=== PATIENT | male | born 1970 | race African-American/Black ===

== ENCOUNTER 2019-03-29 13:36 | Inpatient (IN) | payer OTHER ==
[~2019-03-29] VITALS: Ht 193 cm; Wt 85.7 kg
[2019-03-29] MEDS ORDERED: SODIUM CHLORIDE 0.9% 1000ML 1,000 ML IV STA (13:53)
[2019-03-29] MEDS ORDERED: ONDANSETRON HCL INJ 2MG/ML 2ML 2 MG/ML VIAL IV NR (14:00)
[2019-03-29] MEDS ORDERED: DONNATAL/LIDOCAINE/MAALOX 30 ML SUSP PO NR (14:00)
[2019-03-29] MEDS ORDERED: PANTOPRAZOLE 40 MG 10ML VIAL IV NR ×2 (14:00→17:30)
[2019-03-29 14:25] LABS: AMPHETAMINES SCREEN,URINE NEGATIVE (NEGATIVE); BENZODIAZEPINES SCREEN,URINE NEGATIVE (NEGATIVE); PHENCYCLIDINE SCREEN,URINE NEGATIVE (NEGATIVE)
[2019-03-29 15:42] LABS: BASOPHILS % 0.6 % (0.0-1.0); EOSINOPHILS # (AUTO) 0.1 (0.0-0.4); EOSINOPHILS % 0.7 % (0.0-6.0); HEMATOCRIT 41.7 % (38.2-49.6); LYMPHOCYTES # (AUTO) 2.1 (1.0-3.2); LYMPHOCYTES % 29.2 % (18.0-39.1); MEAN CORPUSCULAR HEMOGLOBIN 32.3 pg (28-32); MEAN CORPUSCULAR HGB CONC 33.6 g/dL (31-35); MEAN CORPUSCULAR VOLUME 96.1 fL (81-99); MONOCYTES # (AUTO) 0.5 (0.2-0.8); MONOCYTES % 7.3 % (4.4-11.3); NEUTROPHILS # (AUTO) 4.5 (2.1-6.9); NEUTROPHILS % 61.9 % (38.7-80.0); PLATELET COUNT 267 x10e3/uL (140-360); RED BLOOD COUNT 4.34 x10e6/uL (4.3-5.7); RED CELL DISTRIBUTION WIDTH 12.4 % (11.7-14.4)
[2019-03-29 15:48] LABS: INR 0.9; PROTHROMBIN TIME 12.6 seconds (11.9-14.5)
[2019-03-29 16:03] LABS: ALANINE AMINOTRANSFERASE 30 IU/L (0-55); ALBUMIN 4.5 g/dL (3.5-5.0); ALBUMIN/GLOBULIN RATIO 1.2 (0.8-2.0); ALKALINE PHOSPHATASE 97 IU/L (40-150); AMYLASE 68 U/L (25-125); BLOOD UREA NITROGEN 12 mg/dL (7-26); BUN/CREATININE RATIO 13 (6-25); CALCIUM 11.2 mg/dL (8.4-10.2); CARBON DIOXIDE 28 mmol/L (22-29); CHLORIDE 103 mmol/L (98-107); EST GLOMERULAR FILTRATION RATE > 60 ML/MIN (60-); GLUCOSE 109 mg/dL (74-118); LIPASE 20 U/L (8-78); MAGNESIUM 2.4 MG/DL (1.3-2.1); SODIUM 142 mmol/L (136-145)
--- NOTE | 2019-03-29 16:12 | NUR ---
PT GIVEN GI COCKTAIL, SHORTLY AFTER EMESIS NOTED, APPROX HALF OF MEDICATION, BRENDA IZQUIERDO NOTIFIED.
--- NOTE | 2019-03-29 17:00 | NUR ---
APPROX 300 CC EMESIS NOTED, SEROSANGINOUS IN NATURE, BRENDA ENP NOTIFIED.
[2019-03-29] MEDS ORDERED: ONDANSETRON HCL INJ 2MG/ML 2ML 2 MG/ML VIAL IV ONE (17:30)
--- NOTE | 2019-03-29 18:15 | Diagnostic Imaging Report ---
RADIOGRAPH(S) OF THE ABDOMEN AND PELVIS, 3 view(s) including an upright views of the abdomen and the chest HISTORY: Stomach pain, epigastric pain, peptic ulcers, rule out free air COMPARISON: None available. FINDINGS: Overlying monitoring leads. No evidence of free air. A single mildly dilated segment of small bowel in the left mid abdomen, 3.4 cm in diameter. Small air-fluid levels within the left hemiabdomen. Possibly of bowel gas in general, but there is visible bowel gas and stool in the proximal to mid colon. No definite urinary tract calcification. Phleboliths within the left hemipelvis. The bones are partially obscured by stool and overlying bowel gas. IMPRESSION: 1. Mildly dilated small bowel within the left hemiabdomen, considerations include ileus or partial small bowel obstruction. Surveillance follow-up abdominal radiographs would provide further evaluation. 2. No free air. Signed by: Dr. Adeel Farrell D.O., M.M.M. on 03/29/2019 6:11 PM
[2019-03-29] MEDS ORDERED: DIATRIZOATE MEGL/DIATRIZOA SOD 30 ML BTL PO ONE (18:32)
--- OUTSIDE RECORDS SUMMARY | 2019-03-29 18:36 | XMS REPORT ---
Author [facility] Address Unknown Phone Unavailable Care Team Providers Care Hydrogeology Professor Name Role Phone Caleb W[place] Unavailable Unavailable Problems This patient has no known problems. Allergies, Adverse Reactions, Alerts This patient has no known allergies or adverse reactions. Medications This patient has no known medications. 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 FINDINGS: Overlying monitoring leads. No evidence of free air. A single mildly dilated segment of small bowel in the left mid abdomen, 3.4 cm in diameter. Small air-fluid levels within the left hemiabdomen. Possibly of bowel gas in general, but there is visible bowel gas and stool in the proximal to mid colon. No definite urinary tract calcification. Phleboliths within the left hemipelvis. The bones are partially obscured by stool and overlying bowel gas. IMPRESSION: 1. Mildly dilated small bowel within the left hemiabdomen, considerations include ileus or partial small bowel obstruction. Surveillance follow-up abdominal radiographs would provide further evaluation. 2. No free air. Signed by: Dr. Donte Farrell D.O., M.M.M. on 03/29/2019 6:11 PM Dictated By: DONTE FARRELL DO 10 Transcribed By: CASSY on 03/29/191810 COPY TO: CHRISTOFER HAYES NP
[2019-03-29] MEDS ORDERED: LIDOCAINE VISC 2% SOLN 15 ML UDC PO ONE (19:00)
[2019-03-29] MEDS: SODIUM CHLORIDE 0.9% 1000ML 1,000 ML IV SCH (19:10)
[2019-03-29] MEDS ORDERED: ACETAMINOPHEN 1000 MG/100 ML 100 ML IV ONE (19:41)
--- NOTE | 2019-03-29 20:28 | Diagnostic Imaging Report ---
EXAM: CT of the abdomen and pelvis WITH contrast HISTORY: nasuea, vomiting, concern for SBO or ilieus COMPARISON: None. TECHNIQUE: The abdomen and pelvis were scanned utilizing a multidetector helical scanner. Coronal and sagittal reformats are provided. PROTOCOL: Routine IV CONTRAST: 100 cc of Isovue-370. ORAL CONTRAST: Dilute Gastrografin RADIATION DOSE: Total DLP: 232.53 mGy*cm Estimated effective dose: (DLP x 0.015 x size factor) Dose modulation, iterative reconstruction, and/or weight based adjustment of the mA/kV was utilized to reduce the radiation dose to as low as reasonably achievable. COMPLICATIONS: None FINDINGS: LOWER THORAX: Unremarkable. HEPATOBILIARY: No mass. No biliary dilation. The gallbladder is partially contracted, no calcified stone. SPLEEN: No splenomegaly. PANCREAS: No focal masses or ductal dilatation. ADRENALS: No discrete adrenal nodule. KIDNEYS/URETERS: No hydronephrosis, stones, or definite solid mass lesions. PELVIC ORGANS/BLADDER: The urinary bladder is decompressed, which limits evaluation. GI TRACT: Multiple loops of dilated fluid-filled proximal small bowel, measuring up to 4.2 cm (axial image 43), with short segment transition to nondistended decompressed small bowel. The distal small bowel and colon are relatively decompressed. The appendix is not definitively seen, but there is no specific evidence of acute appendicitis. PERITONEUM / RETROPERITONEUM: Small volume of free fluid within the pelvis. LYMPH NODES: No pathologically enlarged lymph node. VESSELS: Mild scattered atherosclerotic vascular calcifications. BONES: No aggressive osseous lesion or acute fracture. SOFT TISSUES: Unremarkable. IMPRESSION: Findings compatible with a high-grade small bowel obstruction. Signed by: Dr. Adeel Farrell D.O., M.M.M. on 03/29/2019 8:25 PM
--- NOTE | 2019-03-29 20:30 | NUR ---
Got report from Kevin. Patient arrived via wheelchair. at bedside. call light within reach. Patient in pain. called Dr. Cardenas for pain medication. Dr. Cardenas ordered Morphine 2 mg, IV q4 h.
[2019-03-29 20:39] VITALS: BP 145/92
[2019-03-29] MEDS ORDERED: MORPHINE SULFATE 2 MG/ML SYR 1ML IV PRN (21:00)
[2019-03-29] MEDS: MORPHINE SULFATE INJ 4 MG/ML INJ 1ML IV PRN (21:19)
[2019-03-29] MEDS: SODIUM CHLORIDE 0.9% 250ML IRRIG IR SCH (22:30)
[2019-03-29] MEDS ORDERED: IOPAMIDOL 370 MG/ML 200 ML INFUS..BTL INJ ONE (22:43)
[2019-03-29] MEDS ORDERED: SODIUM CHLORIDE 0.9% 50ML 50 ML ONE (22:43)
--- NOTE | 2019-03-29 22:54 | Diagnostic Imaging Report ---
Exam: Abdominal film Clinical History: NG tube placement Comparison: CT abdomen and pelvis 03/29/2019 DISCUSSION: Frontal view of the abdomen shows dilated loops of small bowel in the left lower quadrant with maximal measurement of 3.7 cm. Contrast is noted in the collecting systems. There are no abnormal calcifications.No acute bone abnormality. Lung bases are grossly clear. Enteric tube is noted below the left hemidiaphragm, with distal tip projecting in the stomach fundus IMPRESSION: 1. Enteric tube under the left hemidiaphragm with distal tip projecting in the stomach fundus. 2. Dilated small bowel loops consistent with previously visualized small bowel obstruction. The staff physician below has personally reviewed this exam on the date of dictation. Signed by: Dr. Landon Ch M.D. on 03/29/2019 10:51 PM
[2019-03-29 23:15] VITALS: BP 145/92
--- NOTE | 2019-03-29 23:35 | NUR ---
Called Dr. Min about consult for the patient. Dr. Min said he will come in the morning to see the patient.
[2019-03-30] VITALS (9 sets, daily range): BP systolic 107–160; BP diastolic 63–90
[2019-03-30] MEDS: SODIUM CHLORIDE 0.9% 250ML IRRIG IR SCH ×6 (02:30→22:30)
[2019-03-30] MEDS: MORPHINE SULFATE INJ 4 MG/ML INJ 1ML IV PRN ×3 (04:54→19:04)
[2019-03-30] MEDS: SODIUM CHLORIDE 0.9% 1000ML 1,000 ML IV SCH ×3 (04:55→18:28)
[2019-03-30 05:49] LABS: BASOPHILS % 0.6 % (0.0-1.0); EOSINOPHILS # (AUTO) 0.1 (0.0-0.4); EOSINOPHILS % 1.3 % (0.0-6.0); HEMOGLOBIN 12.3 g/dL (14.0-18.0); MEAN CORPUSCULAR HEMOGLOBIN 31.8 pg (28-32); MEAN CORPUSCULAR HGB CONC 32.4 g/dL (31-35); MEAN CORPUSCULAR VOLUME 98.2 fL (81-99); MONOCYTES # (AUTO) 0.6 (0.2-0.8); MONOCYTES % 8.9 % (4.4-11.3); NEUTROPHILS # (AUTO) 4.1 (2.1-6.9); NEUTROPHILS % 59.9 % (38.7-80.0); PLATELET COUNT 196 x10e3/uL (140-360); RED BLOOD COUNT 3.87 x10e6/uL (4.3-5.7); RED CELL DISTRIBUTION WIDTH 12.8 % (11.7-14.4)
[2019-03-30 06:15] LABS: ALANINE AMINOTRANSFERASE 22 IU/L (0-55); ALBUMIN 3.5 g/dL (3.5-5.0); ALBUMIN/GLOBULIN RATIO 1.2 (0.8-2.0); ALKALINE PHOSPHATASE 59 IU/L (40-150); ANION GAP 9.7 mmol/L (8-16); BLOOD UREA NITROGEN 11 mg/dL (7-26); BUN/CREATININE RATIO 13 (6-25); CALCIUM 9.7 mg/dL (8.4-10.2); CARBON DIOXIDE 24 mmol/L (22-29); CHLORIDE 109 mmol/L (98-107); CREATININE, SERUM 0.86 mg/dL (0.72-1.25); EST GLOMERULAR FILTRATION RATE > 60 ML/MIN (60-); GLUCOSE 100 mg/dL (74-118); MAGNESIUM 2.1 MG/DL (1.3-2.1); PHOSPHORUS 2.8 MG/DL (2.3-4.7); POTASSIUM 3.7 mmol/L (3.5-5.1); SODIUM 139 mmol/L (136-145)
--- NOTE | 2019-03-30 06:31 | Diagnostic Imaging Report ---
Exam: Abdominal film Clinical History: Small bowel obstruction Comparison: CT abdomen and pelvis 03/29/2019 DISCUSSION: Frontal view of the abdomen shows centrally located mild to moderately dilated loops of small bowel in the left mid and lower quadrant, with maximal measurement of 4.1 cm. Contrast is noted within the large bowel. There are no abnormal calcifications.No acute bone abnormality. Enteric tube is noted on the left hemidiaphragm with distal tip projecting in the proximal fundus and side-port likely in the distal esophagus. IMPRESSION: 1. Enteric tube is noted on the left hemidiaphragm with distal tip projecting in the proximal fundus and side-port likely in the distal esophagus. Further advancement is recommended. 2. Mildly to moderately dilated loops of small bowel in the left mid and lower abdomen consistent with small bowel obstruction. The staff physician below has personally reviewed this exam on the date of dictation. Signed by: Dr. Landon Ch M.D. on 03/30/2019 6:28 AM
--- NOTE | 2019-03-30 07:05 | NUR ---
Patient is awake and alertx4 in NAD. Dr. Cardenas at the bedside rounding, received orders to advance NGT. NGT advanced as ordered and patient tolerated well. POC discussed with patient and he verbalized understanding. Call raza within reach.
--- NOTE | 2019-03-30 07:22 | NUR ---
Gave report to oncoming nurse. Patient A&Ox3. Call light within reach. Patient in bed.
--- NOTE | 2019-03-30 07:53 | Consultation ---
DATE OF CONSULTATION: 03/30/2019 REFERRING PHYSICIAN: Roderick Cardenas MD. HISTORY OF PRESENT ILLNESS: The patient is a 48-year-old male, who presents with complaints of abdominal pain. Says the pain was epigastric, has had some vague pain started about a kvuh-[id number]-x-half ago, but then became much worse yesterday with associated nausea and vomiting. He says the pain is somewhat less today. He was more distended yesterday, but nasogastric tube was in place and now he says he feels better. He says he is passing some flatus. He has noticed that he has had decrease in his bowel movements. He has had previous abdominal surgery, which was about 20 years ago, which was a partial gastrectomy for upper GI bleeding from an ulcer. PAST MEDICAL HISTORY: Otherwise unremarkable. He denies any other medical problems. MEDICATIONS: There were no current medications. ALLERGIES: NO KNOWN ALLERGIES. FAMILY HISTORY: Noncontributory. SOCIAL HISTORY: Noncontributory. REVIEW OF SYSTEMS: As stated above, otherwise was negative. PHYSICAL EXAMINATION: GENERAL: The patient is awake, alert, no distress. VITAL SIGNS: The vital signs are normal. He is not tachycardic. HEENT: There is no scleral icterus. NECK: Has no masses. LUNGS: Equal breath sounds, are clear bilaterally., CARDIAC: Regular rate and rhythm. ABDOMEN: Mild mid abdominal tenderness. There is no distention. There was no mass. There were no signs of peritonitis. EXTREMITIES: No edema. Pulses are palpable. NEUROLOGIC: Intact. LABORATORY TESTS: White blood cell count is normal. Hemoglobin and hematocrit normal. ASSESSMENT: A 48-year-old male with findings suggestive of small bowel obstruction on imaging, although it seems improved now, it seems like the obstruction is probably partial. Followup x-rays reveal contrast in the colon, which suggests that the obstruction is not high-grade or complete. At this point, recommend continuing the patient n.p.o. with the NG tube and IV fluids. Plan to repeat the abdominal x-ray tomorrow. Thank you for asking me to see Mr. Solis. MD DAGO Coleman/MONALISA /[id number]
[2019-03-30] MEDS: ONDANSETRON HCL INJ 2MG/ML 2ML 2 MG/ML VIAL IV PRN ×2 (11:57→19:04)
--- NOTE | 2019-03-30 12:30 | NUR ---
Patient voiced he is more comfortable and no other complaints voiced at this time. Call raza within reach.
--- NOTE | 2019-03-30 15:20 | NUR ---
Nutrition Screen Note RD Recommendation for Physician: -Rec ADAT to GI soft diet Plan of Care: RD following, monitoring for tolerance and adequacy Nutrition reason for involvement: Nutrition Risk Trigger MST Primary Diagnose(s): SBO PMH: partial gastrectomy for upper GI bleeding from an ulcer about 20 years ago Ht: 76in Wt: 188lb BMI: 22.9kg/m2 IBW: 202lb RD Assessment: (03/30) Chart reviewed. Labs and meds reviewed. 48yo M, who was admitted for abdominal pain. Abd X-Ray showed SBO. NGT to wall suction with ~200mL brownish-yellow drainage noted during my visit. Pt reported relief from abdominal pain after NGT placed. Flatus present. Pt reported eating like normal for the past couple weeks. However, he has had some intentional weight loss (30lbs in 4 months) due to increased physical activity at work. Will continue to monitor and follow. Current Diet: NPO Malnutrition Evaluation (03/30) The patient does not meet criteria for a specified degree of malnutrition at this time. Will re-evaluate at follow-up as appropriate. Diet Education Needs Assessment: Diet education not indicated. Nutrition Care Level: low Signed: Amie Field, MS, RD, LD
--- NOTE | 2019-03-30 16:53 | NUR ---
Patient transferred to unit from OBS. Patient arrived via wheelchair. Patient is AAOx3. NG tube in place to low suction. No c/o pain at this time. Lung salcido clear to auscultation. Bowel sounds present x4. NO edema noted. Patient ambulates on his own. Patient is NPO at this time.
--- NOTE | 2019-03-30 17:00 | NUR ---
Patient transferred to room 104 with all belongings in stable condition. Report given to RN.
[2019-03-30] MEDS ORDERED: HYDRALAZINE HCL 20 MG/ML VIAL IV PRN (18:00)
[2019-03-31] VITALS (8 sets, daily range): BP systolic 134–155; BP diastolic 73–81
[2019-03-31] MEDS: MORPHINE SULFATE INJ 4 MG/ML INJ 1ML IV PRN ×2 (00:04→08:19)
--- NOTE | 2019-03-31 00:51 | History and Physical ---
CHIEF COMPLAINT: A 48-year-old male comes in with abdominal pain. HISTORY OF PRESENTING ILLNESS: Mr. Domenico Delvalle with no prior medical history, who was in usual health until the patient started to have abdominal pain, which is vague. The patient had eaten something which is not agreeing for his stomach and the patient has nausea and vomiting. The patient felt better after some time, but however the patient's abdominal pain got worse. The patient increased his water intake and the patient's regurgitation has some nausea and vomiting. When he came to emergency room, he was found to have small bowel obstruction, low-grade and the patient is admitted for the same. Currently, the patient has an NG tube in place. PAST SURGICAL HISTORY: History of gastric surgery for gastric ulcers and for any GI bleeding. PAST MEDICAL HISTORY: Otherwise not significant. MEDICATIONS: No medications. ALLERGIES: NO DRUG ALLERGIES NOTED. FAMILY HISTORY: Noncontributory. SOCIAL HISTORY: Noncontributory. REVIEW OF SYSTEMS: Negative for chest pain. No shortness of breath. Positive for nausea. No vomiting. No diarrhea. No constipation. Abdominal pain and abdominal bloating. PHYSICAL EXAMINATION: GENERAL: The patient is alert and oriented x3. VITAL SIGNS: Temperature is 98.8, blood pressure is 106/90. The patient's pulse oximeter is 95%. HEENT: Normocephalic, atraumatic. Pupils are reactive to light and accommodation. CVS: S1 and S2 normal. Regular rate and rhythm. ABDOMEN: Distended. EXTREMITIES: No clubbing, no cyanosis, no edema. LABORATORY VALUES: The patient has a white count of 7.5, hemoglobin of 14, hematocrit of 41.7. Chemistries: Sodium 142, potassium of 4.0, BUN 12, creatinine 0.90. Toxicology negative for entire drug screen. Stool culture is negative. IMAGING: Abdominal CT shows multiple loops of dilated fluid-filled proximal small bowel compatible with high-grade small bowel obstruction. This morning's KUB shows mildly to moderate dilated loops of small bowel. ASSESSMENT: Small bowel obstruction. PLAN: Plan is to continue with NG tube and also to suction. X-ray will be done tomorrow. A KUB. We will continue to monitor the patient. Further recommendation per clinical course. Also, we will start the patient on some IV hydralazine if needed for blood pressure above 170. A consult with Dr. Min has been done already. MD FEMI Landin/GODFREYL /[id number]
[2019-03-31] MEDS: SODIUM CHLORIDE 0.9% 1000ML 1,000 ML IV SCH ×3 (02:28→13:43)
[2019-03-31] MEDS: SODIUM CHLORIDE 0.9% 250ML IRRIG IR SCH ×4 (02:30→13:43)
[2019-03-31 05:35] LABS: BASOPHILS % 0.4 % (0.0-1.0); EOSINOPHILS # (AUTO) 0.1 (0.0-0.4); EOSINOPHILS % 1.2 % (0.0-6.0); HEMATOCRIT 35.8 % (38.2-49.6); LYMPHOCYTES # (AUTO) 2.2 (1.0-3.2); LYMPHOCYTES % 29.7 % (18.0-39.1); MEAN CORPUSCULAR HEMOGLOBIN 32.4 pg (28-32); MEAN CORPUSCULAR HGB CONC 33.5 g/dL (31-35); MEAN CORPUSCULAR VOLUME 96.8 fL (81-99); MONOCYTES # (AUTO) 0.6 (0.2-0.8); MONOCYTES % 7.7 % (4.4-11.3); NEUTROPHILS # (AUTO) 4.4 (2.1-6.9); NEUTROPHILS % 60.7 % (38.7-80.0); PLATELET COUNT 175 x10e3/uL (140-360); RED CELL DISTRIBUTION WIDTH 12.5 % (11.7-14.4)
[2019-03-31 06:01] LABS: ANION GAP 9.9 mmol/L (8-16); BLOOD UREA NITROGEN 12 mg/dL (7-26); BUN/CREATININE RATIO 15 (6-25); CALCIUM 9.3 mg/dL (8.4-10.2); CARBON DIOXIDE 23 mmol/L (22-29); CHLORIDE 109 mmol/L (98-107); CREATININE, SERUM 0.78 mg/dL (0.72-1.25); EST GLOMERULAR FILTRATION RATE > 60 ML/MIN (60-); GLUCOSE 86 mg/dL (74-118); POTASSIUM 3.9 mmol/L (3.5-5.1); SODIUM 138 mmol/L (136-145)
--- NOTE | 2019-03-31 07:00 | NUR ---
Rcvd patient in report this am. Patient is asleep in bed at this time. No s/s of distress noted
--- NOTE | 2019-03-31 07:17 | Progress Note ---
DATE: SUBJECTIVE: This is a 48-year-old gentleman comes in with small bowel obstruction. Currently, the patient is feeling better. Abdominal pain is better. Bloating is better. The patient is passing gas. Bowel sounds are positive. The patient's NG tube is in place. OBJECTIVE: VITAL SIGNS: Temperature is 96.5, T-max of 99.0 on , the patient has a pulse of 58, blood pressure was 139/77, and pulse oximetry of 95%. HEENT: Normocephalic, atraumatic. Pupils are reactive to light and accommodation. NG tube in place. CVS: S1 and S2 normal. Regular rate and rhythm. ABDOMEN: Nontender and nondistended. Bowel sounds are present. EXTREMITIES: No clubbing, no cyanosis, no edema. LABORATORY DATA: The patient's laboratory values, today's sodium is 138, potassium 3.9, chloride 109, BUN 12, and creatinine 0.78. The patient's chemistries from a Hematology shows hemoglobin is 12, hematocrit 35.8, and MCH 34.2. Coags are normal. IMAGING STUDIES: From yesterday, mildly to moderately dilated loops of small bowel in the left mid air and lower abdominal consist small bowel obstruction. ASSESSMENT: Small bowel obstruction, partial. The patient has improved quite a bit. We will go ahead and do a KUB today, clamped the NG tube. We will probably G-tube today. Further recommendation per clinical course. Continue with IV resuscitation fluids. Possible discharge tomorrow after advancing the diet. MD FEMI Landin/MODL /[id number]
[2019-03-31] MEDS: ONDANSETRON HCL INJ 2MG/ML 2ML 2 MG/ML VIAL IV PRN (08:20)
--- NOTE | 2019-03-31 08:22 | Diagnostic Imaging Report ---
Exam: Abdominal film Clinical History: Small bowel obstruction follow-up Comparison: None. DISCUSSION: Enteric tube with tip overlying the gastric fundus. Contrast within the colon. Scattered air within the colon and small bowel with mild dilation of bowel measuring up to 3.5 cm. IMPRESSION: Decreased small bowel distention. Signed by: Dr. Conrado Duran M.D. on 03/31/2019 8:18 AM
--- NOTE | 2019-03-31 09:39 | NUR ---
Patient is AAOx3. Patient lung salcido clear to auscultation. Bowel sounds present but hypoactive. NG tube in place. MD ordered for it to be clamped and see how patient tolerates. No c/o nausea. Patient ambulates on his own. No s/s of distress noted. Right AC IV in place with IV fluids infusing
--- NOTE | 2019-03-31 16:00 | NUR ---
Removed NG tube at this time. Patient tolerated well. Dr. Norman here and informed to start patient on clear liquids
[2019-04-01] VITALS (9 sets, daily range): BP systolic 124–139; BP diastolic 68–88
[2019-04-01] MEDS: MORPHINE SULFATE INJ 4 MG/ML INJ 1ML IV PRN (01:48)
[2019-04-01] MEDS: SODIUM CHLORIDE 0.9% 1000ML 1,000 ML IV SCH ×3 (02:28→17:38)
--- NOTE | 2019-04-01 06:15 | NUR ---
Patient went to radiology department accompanied by staff via wheelchair.
--- NOTE | 2019-04-01 06:23 | NUR ---
Patient is back from radiology department via wheelchair.
--- NOTE | 2019-04-01 06:37 | Diagnostic Imaging Report ---
Exam: Abdominal film Clinical History: Small bowel obstruction Comparison: KUB 03/31/2019 DISCUSSION: Frontal view of the abdomen shows a nonobstructive bowel gas pattern with mild amount of retained stool.There are no dilated, air-filled loops of bowel. Residual contrast is noted throughout the colon. No acute bony abnormalities. No abnormal calcifications. Lung bases are clear. The previously visualized enteric tube has been removed. IMPRESSION: 1. No air-filled, dilated loops of bowel are identified. Residual contrast is noted throughout the colon. The staff physician below has personally reviewed this exam on the date of dictation. Signed by: Dr. Landon Ch M.D. on 04/01/2019 6:34 AM
--- NOTE | 2019-04-01 07:20 | NUR ---
Rcvd patient in report this am. Patient is asleep in bed at this time. No s/s of distress noted
--- NOTE | 2019-04-01 09:53 | Progress Note ---
DATE: SUBJECTIVE: The patient is here for small bowel obstruction. NG tube was taken out yesterday. The patient was on clear liquid diet and tolerated. Positive for bowel sounds. Positive for bowel movements. The patient is asymptomatic. OBJECTIVE: VITAL SIGNS: Temperature is 98.0, pulse of 70, blood pressure 124/68, pulse oximetry of 96%. The patient has been afebrile for the last 48 hours. HEENT: Normocephalic, atraumatic. Pupils are reactive to light and accommodation. CVS: S1, S2 kenia. Regular rate and rhythm. ABDOMEN: Nontender, nondistended. Bowel sounds positive. No organomegaly. No guarding. No rebound. EXTREMITIES: No clubbing, no cyanosis, no edema. LABORATORY VALUES: Yesterday's hemoglobin of 12.0, hematocrit 35.8. Chemistries all within normal limits. Toxicology all within normal limits. Yesterday's abdominal x-ray shows no air-filled dilated loops are identified. Residual contrast noted in the colon. ASSESSMENT: Small-bowel obstruction, resolved. PLAN: Plan is to advance the diet today and possible discharge tomorrow for depending on clinical course. Currently asymptomatic. We will continue with fluid resuscitation and keep his bowels hydrated. MD FEMI Landin/MONALISA /[id number]
--- NOTE | 2019-04-01 10:39 | NUR ---
Patient is AAOx3. patient diet advanced today and he tolerated his regular food with no c/o pain. Lung salcido clear to auscultation. Bowel sounds present x4. No edema noted. Patient passing gas and no BM noted at this time.
[2019-04-01] MEDS ORDERED: DOCUSATE SODIUM 100 MG CAP PO PRN (17:15)
[2019-04-01] MEDS ORDERED: DOCUSATE SODIUM 100 MG CAP PO NR (17:15)
[2019-04-02] MEDS: SODIUM CHLORIDE 0.9% 1000ML 1,000 ML IV SCH (02:28)
--- NOTE | 2019-04-02 07:30 | NUR ---
Received patient AAOx3, IV fluids running, no s/s of distress. Dr. Cardenas discharged patient. Bed in lowest position, side rails up x2, and call raza within reach.
[2019-04-02 08:01] VITALS: BP 136/93
--- NOTE | 2019-04-02 08:06 | Progress Note ---
DATE: SUBJECTIVE: The patient is here for small bowel obstruction. The SBO has resolved. The patient is currently asymptomatic to food. Had a bowel movement yesterday. No complaints. Abdominal pain has dissipated. OBJECTIVE: VITAL SIGNS: Temperature is 97.3, pulse of 73, respirations of 18, blood pressure is 131/81, pulse oximetry of 98%. HEENT: Normocephalic, atraumatic. Pupils are reactive to light and accommodation. CVS: S1, S2 normal. Regular rate and rhythm. ABDOMEN: Nontender, nondistended. Bowel sounds are positive. EXTREMITIES: No clubbing, no cyanosis, no edema. LABORATORY DATA: The patient's labs have been normal yesterday. ASSESSMENT: Small bowel obstruction, completely resolved. PLAN: Plan is to continue with regular food. The patient has been advised to not take high-residue food. Low-residue food is recommended. The patient will be discharged today. Further recommendations per clinical course. Asked to follow up with his primary care physician. MD FEMI Landin/MODL /[id number]
--- NOTE | 2019-04-02 08:30 | NUR ---
Patient received discharge papers. Went over papers with patient. Patient understood instructions. IV removed from right AC. No IV complications to IV site. Patient sitting on the sofa.
--- NOTE | 2019-04-02 11:40 | NUR ---
Patient has been discharged. Escorted patient to the front of hospital where picked him up infront of hospital.
== END 2019-04-02 11:27 | disposition home or self-care (01) | DRG 390 ==
LOC: ER 13:36 → ERHOLD 18:28 → IMCU 20:00 → OBSVTOIN 03-30 10:34 → MED/SURG 03-30 16:57
PROVIDERS: ADMIT Family Medicine; ATTEND Family Medicine
DX: K56.609 Unspecified intestinal obstruction, unspecified as to partial versus complete obstruction (principal); Z87.11 Personal history of peptic ulcer disease; I10 Essential (primary) hypertension
CPT/HCPCS: 36415; 74018; 74019; 74022; 74177; 80048; 80053; 80307; 82150; 82270; 82948; 83690; 83735; 84100; 85025; 85610; 85730; 86850; 86900; 93005; 99284; G0378; J2270; J2405; J7030; Q9967

== ENCOUNTER 2020-08-28 15:46 | Observation (INO) | payer OTHER ==
[~2020-08-28] VITALS: Ht 193 cm; Wt 85.7 kg
[2020-08-28] MEDS ORDERED: PANTOPRAZOLE 40 MG 10ML VIAL IV STA (15:58)
[2020-08-28] MEDS ORDERED: DONNATAL/LIDOCAINE/MAALOX 30 ML SUSP PO STA (15:58)
[2020-08-28] MEDS ORDERED: SODIUM CHLORIDE 0.9% 1000ML 1,000 ML IV SCH (16:00)
[2020-08-28] MEDS ORDERED: ONDANSETRON HCL INJ 2MG/ML 2ML 2 MG/ML VIAL IV PRN (16:00)
[2020-08-28 16:16] LABS: BASOPHILS % 0.4 % (0.0-1.0); EOSINOPHILS % 0.6 % (0.0-6.0); HEMATOCRIT 37.7 % (38.2-49.6); HEMOGLOBIN 12.2 g/dL (14.0-18.0); LYMPHOCYTES % 29.5 % (18.0-39.1); MEAN CORPUSCULAR HEMOGLOBIN 31.1 pg (28-32); MEAN CORPUSCULAR HGB CONC 32.4 g/dL (31-35); MEAN CORPUSCULAR VOLUME 96.2 fL (81-99); MONOCYTES # (AUTO) 0.4 (0.2-0.8); MONOCYTES % 6.3 % (4.4-11.3); NEUTROPHILS # (AUTO) 4.2 (2.1-6.9); NEUTROPHILS % 63.1 % (38.7-80.0); PLATELET COUNT 208 x10e3/uL (140-360); RED BLOOD COUNT 3.92 x10e6/uL (4.3-5.7); RED CELL DISTRIBUTION WIDTH 14.5 % (11.7-14.4)
[2020-08-28] MEDS ORDERED: LIDOCAINE VISC 2% SOLN 15 ML UDC ONE (16:16)
[2020-08-28] MEDS ORDERED: BELLADONNA ALK/PHENOBARBITAL 5 ML UDC ONE (16:17)
[2020-08-28] MEDS ORDERED: MAGNESIUM/ALUMINUM/SIMETHICONE 30 ML UDC ONE (16:17)
--- NOTE | 2020-08-28 16:17 | Emergency Department Note ---
History of Present Illnes History of Present Illness Chief Complaint: Abdominal Complaints History of Present Illness This is a 50 year old male Chief Complaint Comment PATIENT IN FROM HOME WITH COMPLAINTS OF EPIGASTRIC PAIN AND NAUSEA STARTING LAST NIGHT; RATES PAIN 10/10. PATIENT WITH C/O NAUSEA, BUT NO VOMITING OR DIARRHEA. PATIENT WITH A HISTORY OF GERD. 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 Any updates have been documented here. (EDDY LIM MD) Past Medical History Recent Fever: No Clinical Suspicion of Infectio: No New/Unexplained Change in Ment: No Past Medical History: GERD Other Medical History: GASTRIC ULCERS Other Surgery: ulcer (EDDY LIM MD) Social History Physically hurt or threatened: No (EDDY LIM MD) Other Last Tetanus: UNKNOWN (EDDY LIM MD) Review of Systems Review of Systems Constitutional: Reports no symptoms EENTM: Reports no symptoms Cardiovascular: Reports no symptoms Respiratory: Reports no symptoms Gastrointestinal: Reports as per HPI, Reports abdominal pain Genitourinary: Reports no symptoms Musculoskeletal: Reports no symptoms Integumentary: Reports no symptoms Neurological: Reports no symptoms Psychological: Reports no symptoms Endocrine: Reports no symptoms Hematological/Lymphatic: Reports no symptoms (EDDY LIM MD) Physical Exam Related Data Allergies: Coded Allergies: aspirin (Verified Allergy, Unknown, "I SWELL UP", 08/28/20) Triage Vital Signs Vital Signs Date Time Temp Pulse Resp B/P (MAP) Pulse Ox O2 Delivery O2 Flow Rate FiO2 08/28/20 15:56 98.2 80 18 138/83 100 Room Air Vital signs reviewed: Yes (EDDY LIM MD) Physical Exam CONSTITUTIONAL Constitutional: Present well-developed, Present well-nourished HENT HENT: Present normocephalic, Present atraumatic, Present oropharynx clear/moist, Present nose normal HENT L/R: Present left ext ear normal, Present right ext ear normal EYES Eyes: Reports PERRL, Reports conjunctivae normal NECK Neck: Present ROM normal PULMONARY Pulmonary: Present effort normal, Present breath sounds normal CARDIOVASCULAR Cardiovascular: Present regular rhythm, Present heart sounds normal, Present capillary refill normal, Present normal rate GASTROINTESTINAL Abdominal: Present soft, Present bowel sounds normal, Present tender (Epigastrium) GENITOURINARY Genitourinary: Present exam deferred SKIN Skin: Present warm, Present dry MUSCULOSKELETAL Musculoskeletal: Present ROM normal NEUROLOGICAL Neurological: Present alert, Present oriented x 3, Present no gross motor or sensory deficits PSYCHOLOGICAL Psychological: Present mood/affect normal, Present judgement normal (EDDY LIM MD) Results Laboratory Lab results reviewed: Yes Laboratory comments Laboratory Tests Test 08/28/20 16:00 08/28/20 15:34 White Blood Count 6.68 x10e3/uL (4.8-10.8) Red Blood Count 3.92 x10e6/uL (4.3-5.7) Hemoglobin 12.2 g/dL (14.0-18.0) Hematocrit 37.7 % (38.2-49.6) Mean Corpuscular Volume 96.2 fL (81-99) Mean Corpuscular Hemoglobin 31.1 pg (28-32) Mean Corpuscular Hemoglobin Concent 32.4 g/dL (31-35) Red Cell Distribution Width 14.5 % (11.7-14.4) Platelet Count 208 x10e3/uL (140-360) Neutrophils (%) (Auto) 63.1 % (38.7-80.0) Lymphocytes (%) (Auto) 29.5 % (18.0-39.1) Monocytes (%) (Auto) 6.3 % (4.4-11.3) Eosinophils (%) (Auto) 0.6 % (0.0-6.0) Basophils (%) (Auto) 0.4 % (0.0-1.0) Neutrophils # (Auto) 4.2 (2.1-6.9) Lymphocytes # (Auto) 2.0 (1.0-3.2) Monocytes # (Auto) 0.4 (0.2-0.8) Eosinophils # (Auto) 0.0 (0.0-0.4) Basophils # (Auto) 0.0 (0.0-0.1) Absolute Immature Granulocyte (auto 0.01 x10e3/uL (0-0.1) Sodium Level 145 mmol/L (136-145) Potassium Level 3.8 mmol/L (3.5-5.1) Chloride Level 110 mmol/L (98-107) Carbon Dioxide Level 25 mmol/L (22-29) Anion Gap 13.8 mmol/L (8-16) Blood Urea Nitrogen 9 mg/dL (7-26) Creatinine 0.95 mg/dL (0.72-1.25) Estimat Glomerular Filtration Rate > 60 ML/MIN (60-) BUN/Creatinine Ratio 9 (6-25) Glucose Level 94 mg/dL (74-118) Calcium Level 10.0 mg/dL (8.4-10.2) Total Bilirubin 0.8 mg/dL (0.2-1.2) Aspartate Amino Transf (AST/SGOT) 35 IU/L (5-34) Alanine Aminotransferase (ALT/SGPT) 29 IU/L (0-55) Alkaline Phosphatase 73 IU/L (40-150) Total Protein 7.8 g/dL (6.5-8.1) Albumin 4.5 g/dL (3.5-5.0) Globulin 3.3 g/dL (2.3-3.5) Albumin/Globulin Ratio 1.4 (0.8-2.0) Lipase 15 U/L (8-78) Urine Color Straw (YELLOW) Urine Clarity Sl cloudy (CLEAR) Urine pH 6 (5 - 7) Urine Specific Disney 1.030 (1.010-1.025) Urine Protein Trace (NEGATIVE) Urine Glucose (UA) Negative (NEGATIVE) Urine Ketones Trace (NEGATIVE) Urine Blood Negative (NEGATIVE) Urine Nitrite Negative (NEGATIVE) Urine Bilirubin Small (NEGATIVE) Urine Urobilinogen 1 mg/dL (0.2 - 1) Urine Leukocyte Esterase Negative (NEGATIVE) Urine RBC None /HPF (0-5) Urine WBC None /HPF (0-5) Urine Epithelial Cells Few /LPF (NONE) Urine Bacteria Moderate /HPF (NONE) Urine Mucus Moderate (RARE) Urine Opiates Screen Negative (NEGATIVE) Urine Methadone Screen Negative (NEGATIVE) Urine Barbiturates Screen Negative (NEGATIVE) Urine Phencyclidine Screen Negative (NEGATIVE) Urine Amphetamines Screen Negative (NEGATIVE) Urine Methamphetamines Screen Negative (NEGATIVE) Urine Benzodiazepines Screen Negative (NEGATIVE) Urine Cocaine Screen Negative (NEGATIVE) Urine Cannabinoids Screen Negative (NEGATIVE) (ROHITH MENDOZA DO) Imaging Imaging results reviewed: Yes (RHOITH MENDOZA DO) Procedures 12 Lead ECG Interpretation 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 Similar to prior PUD episodes in the past. EKg well appearing. diff includes PUD, GERD vs cholelithiasis vs pancreatitis among others. W/u includes RUQ US and labs ordered. Added Ct abd pelvis 2/2 continues pain. He was given GI cocktail, IV protonix with mild relief of symptoms. (EDDY LIM MD) MDM Sign out obtained from Dr. Lim to follow-up imaging. Patient continued to complain of pain, CT abdomen and pelvis consistent with small bowel obstruction. NG tube was placed and patient was admitted. Further consultation to be done by Dr. Armando. (ROHITH MENDOZA DO) Reassessment Reassessment time: 16:17 Reassessment Pain improved (EDDY LIM MD) Assessment & Plan Final Impression: (1) Epigastric abdominal pain (EDDY LIM MD) Final Impression: (1) Epigastric abdominal pain (2) SBO (small bowel obstruction) (ROHITH MENDOZA DO) Depart Disposition: ADMITTED Last Vital Signs Date Time Temp Pulse Resp B/P (MAP) Pulse Ox O2 Delivery O2 Flow Rate FiO2 08/28/20 15:56 98.2 80 18 138/83 100 Room Air (EDDY LIM MD) Medications in the ED Ondansetron HCl 4 mg Q4H PRN IV NAUSEA AND VOMITING; Start 08/28/20 at 16:00; Stop 09/27/20 at 15:59 Sodium Chloride 1,000 ml @ 100 mls/hr Q10H IV ; Start 08/28/20 at 16:00; Stop 09/27/20 at 15:59 Belladonna Alkaloids/ Phenobarbital 30 ml ONCE STAT PO ; Start 08/28/20 at 15:58; Stop 08/28/20 at 16:02; Status DC Pantoprazole Sodium 40 mg NOW STAT IV ; Start 08/28/20 at 15:58; Stop 08/28/20 at 16:02; Status DC Lidocaine HCl 15 ml STK-MED ONCE .ROUTE ; Start 08/28/20 at 16:16; Stop 08/28/20 at 16:10; Status DC Belladonna Alkaloids/ Phenobarbital 10 ml STK-MED ONCE .ROUTE ; Start 08/28/20 at 16:17; Stop 08/28/20 at 16:10; Status DC Magnesium Aluminum Silicate 30 ml STK-MED ONCE .ROUTE ; Start 08/28/20 at 16:17; Stop 08/28/20 at 16:10; Status DC (EDDY LIM MD) EDDY LIM MD Aug 28, 2020 16:17 ROHITH MENDOZA DO Aug 28, 2020 21:19
[2020-08-28 16:19] LABS: BILIRUBIN,URINE SMALL (NEGATIVE); CLARITY,URINE SL CLOUDY (CLEAR); COLOR,URINE STRAW (YELLOW); KETONES,URINE TRACE (NEGATIVE); LEUKOCYTE ESTERASE ,URINE NEGATIVE (NEGATIVE); NITRITE,URINE NEGATIVE (NEGATIVE); PROTEIN,URINE DIPSTICK TRACE (NEGATIVE); URINE UROBILINOGEN 1 mg/dL (0.2 - 1)
[2020-08-28 16:30] LABS: BACTERIA,URINE MODERATE /HPF; EPITHELIAL CELLS,URINE FEW /LPF; MUCUS,URINE MODERATE (RARE)
[2020-08-28 16:31] LABS: ALANINE AMINOTRANSFERASE 29 IU/L (0-55); ALBUMIN 4.5 g/dL (3.5-5.0); ALBUMIN/GLOBULIN RATIO 1.4 (0.8-2.0); ALKALINE PHOSPHATASE 73 IU/L (40-150); ANION GAP 13.8 mmol/L (8-16); BLOOD UREA NITROGEN 9 mg/dL (7-26); BUN/CREATININE RATIO 9 (6-25); CARBON DIOXIDE 25 mmol/L (22-29); CHLORIDE 110 mmol/L (98-107); CREATININE, SERUM 0.95 mg/dL (0.72-1.25); EST GLOMERULAR FILTRATION RATE > 60 ML/MIN (60-); GLUCOSE 94 mg/dL (74-118); POTASSIUM 3.8 mmol/L (3.5-5.1); SODIUM 145 mmol/L (136-145)
--- OUTSIDE RECORDS SUMMARY | 2020-08-28 16:34 | XMS REPORT | Continuity of Care Document ---
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 Name Role Phone NO, PCP PCP Unavailable Caleb MOORE Attphys Unavailable Caleb MOORE Admphys Unavailable Payers Payer Name Policy Type Policy Number Effective Date Expiration Date Caleb Pearson Pos [id number] [facility] Problems Condition Name Condition Details Condition Category Status Onset Date Resolution Date Last Treatment Date Treating Clinician Comments Source Small bowel obstruction SBO (small bowel obstruction) Problem Active [facility] Allergies, Adverse Reactions, Alerts Allergy Name Allergy Type Status Severity Reaction(s) Onset Date Inacti ve Date Treating Clinician Comments Source aspirin DA Active UT 2020-02-24 00:00:00 [facility] ibuprofen DA Active U 2020-02-24 00:00:00 [facility] Aspirin Allergy to Substance Active "I SWELL UP" 2019-03-29 00:00: 00 [facility] No Known Allergies DA Active U 2014-10-08 00:00:00 [facility] Medications This patient has no known medications. Procedures Procedure Date / Time Performed Performing Clinician Sourjosiah e Computed tomography of abdomen and pelvis with contrast 2018 00:00:00 CHRISTOFER HAYES [facility] Encounters Start Date/Time End Date/Time Encounter Type Admission Type Attendi ng Clinicians Care Facility Care Department Encounter ID Source 2019-03-30 10:34:00 2019-04-02 11:27:00 Discharged Inpatient 1 [facility] [id number] [facility] Results Test Description Test Time Test Comments Results Result Comments Source - XR ABDOMEN AP 1 V 2020-02-26 08:27:00 FAX: Kenya Lyle [phone] [place]: St: ADM FAX: David Lewis MD Name: RAMIN EPPS [facility] : 1970 Age/S: 49/M [address] [facility] Unit #: [id number] Loc: [address] [place] [address] Phys: Kenya Mendosa MD Acct: [id number] Dis Date: Status: ADM IN PHONE #: [phone] Exam Date: 02/26/2020 08 FAX #: [phone] Reason: followup on SBO EXAMS: CPT CODE: [id number] XR ABDOMEN AP 1 V 00769 HISTORY: Small bowel obstruction, abdominal pain TECHNIQUE: AP abdomen x- ray COMPARISON: Previous day FINDINGS: Resolved gas-distended small bowel loops within the mid left abdomen. Bowel gas observed throughout the colon. No intra-abdominal mass effect. Left pelvic phleboliths. Degenerative changes of the spine and hips. IMPRESSION: Resolved gas-distended small bowel loops within the mid left abdomen. LOCATION: [facility] at 0827 Reported and signed by: Lisa Neal D.O. CC: Kenya Mendosa MD; David Lewis MD Technologist: LONDON NICOLAS JR Trnscrd Date/Time/By: 02/26/2020 (0827) : By: [email or web address] Orig Print D/T: S: 02/26/2020 (9158) PAGE 1 Signed Report - XR ABDOMEN AP 1 V 2020-02-25 09:51:00 FAX: Kenya Lyle [phone] Warner: St: ADM FAX: Y Luisito Norman MD [phone] Name: RAMIN EPPS [facility] : 1970 Age/S: 49/M [address] [facility] Unit #: [id number] Loc: [address] [place] [address] Phys: Luisito Norman MD Acct: [id number] Dis Date: Status: ADM IN PHONE #: [phone] Exam Date: 02/25/2020924 FAX #: [phone] Reason: sbo EXAMS: CPT CODE: [id number] XR ABDOMEN AP 1 V 54963 HISTORY: sbo TECHNIQUE: AP abdomen x-ray COMPARISON: None FINDINGS: Nonobstructive bowel gas pattern. No significant stool burden. No intra-abdominal mass effect. No abnormal calcifications are observed. Visualized osseous structures are intact. IMPRESSION: No radiographic evidence of acute intra-abdominal process. Location: [facility] at 0951 Reported and signed by: rAt Cummins MD CC: Kenya Mendosa MD; Luisito Norman MD Technologist: Sonal SIN(R) Trnscrd Date/Time/By: 02/25/2020 (0951) : By: [email or web address] Orig Print D/T: S: 02/25/2020 (4585) PAGE 1 Signed Report BASIC METABOLIC PANEL 2020-02-25 05:00:00 Test Item SODIUM (test code = NA) 142 mmol/L 136-145 N POTASSIUM (test code = K) 3.9 mmol/L 3.5-5.1 N CHLORIDE (test code = CL) 109.0 mmol/L 98-107 H CARBON DIOXIDE (test code = CO2) 26.0 mmol/L 21-32 N ANION GAP (test code = GAP) 10.9 10-20 N GLUCOSE (test code = GLU) 92 mg/dL 74-106 N BLOOD UREA NITROGEN (test code = BUN) 13 mg/dL 7-18 N GLOMERULAR FILTRATION RATE (test code = GFR) > 60 mL/min >=60 Estimated GFR by using Modified MDRD formula.Chronic kidney disease is defined as either kidney damageor GFR <60 mL/min/1.73 m2 for >3 months. CREATININE (test code = CREAT) 0.80 mg/dL 0.7-1.3 N BUN/CREATININE RATIO (test code = BUN/CREA) 16.3 10-20 N CALCIUM (test code = CA) 9.0 mg/dL 8.5-10.1 N BASIC METABOLIC [id number] 04:55:00* Test Item Value Reference Range Interpretation Comments SODIUM (test code = NA) 142 mmol/L 136-145 N POTASSIUM (test code = K) 3.9 mmol/L 3.5-5.1 N CHLORIDE (test code = CL) 109.0 mmol/L 98-107 H CARBON DIOXIDE (test code = CO2) mmol/L 21-32 ANION GAP (test code = GAP) 10-20 GLUCOSE (test code = GLU) mg/dL 74-106 BLOOD UREA NITROGEN (test code = BUN) mg/dL 7-18 GLOMERULAR FILTRATION RATE (test code = GFR) mL/min >=60 CREATININE (test code = CREAT) mg/dL 0.7-1.3 BUN/CREATININE RATIO (test code = BUN/CREA) 10-20 CALCIUM (test code = CA) 9.0 mg/dL 8.5-10.1 N CBC W/AUTO [id number] 04:45:00* Test Item Value Reference Range Interpretation Comments WHITE BLOOD CELL (test code = WBC) 6.2 K/mm3 4.5-12.5 N RED BLOOD CELL (test code = RBC) 3.85 mill/mm3 4.0-5.8 L HEMOGLOBIN (test code = HGB) 12.2 gram/dL 13.0-17.5 L HEMATOCRIT (test code = HCT) 37.5 % 42.0-52.0 L MEAN CELL VOLUME (test code = MCV) 97.4 fL 80-98 N MEAN CELL HGB (test code = MCH) 31.7 picogram 27.0-33.0 N MEAN CELL HGB CONCETRATION (test code = MCHC) 32.5 gram/dL 33.0-36. 0 L RED CELL DISTRIBUTION WIDTH (test code = RDW) 14.4 % 11.6-16. 2 N RED CELL DISTRIBUTION WIDTH SD (test code = RDW-SD) 50.9 fL 37 .0-51.0 N PLATELET COUNT (test code = PLT) 193 K/mm3 150-450 N MEAN PLATELET VOLUME (test code = MPV) 9.5 fL 6.7-11.0 N NEUTROPHIL % (test code = NT%) 47.6 % 39.0-69.0 N IMMATURE GRANULOCYTE % (test code = IG%) 0.2 % 0.0-5.0 N LYMPHOCYTE % (test code = LY%) 40.1 % 25.0-55.0 N MONOCYTE % (test code = MO%) 10.0 % 0.0-10.0 N EOSINOPHIL % (test code = EO%) 1.5 % 0.0-5.0 N BASOPHIL % (test code = BA%) 0.6 % 0.0-1.0 N NUCLEATED RBC % (test code = NRBC%) 0.0 % 0-0 N NEUTROPHIL # (test code = NT#) 2.95 K/mm3 1.8-7.7 N IMMATURE GRANULOCYTE # (test code = IG#) 0.01 x10 3/uL 0-0.03 N LYMPHOCYTE # (test code = LY#) 2.48 K/mm3 1.0-5.0 N MONOCYTE # (test code = MO#) 0.62 K/mm3 0-0.8 N EOSINOPHIL # (test code = EO#) 0.09 K/mm3 0.0-0.5 N BASOPHIL # (test code = BA#) 0.04 K/mm3 0.0-0.2 N NUCLEATED RBC # (test code = NRBC#) 0.00 K/mm3 0.0-0.1 N MANUAL DIFF REQUIRED (test code = MDIFF) NO - CT ABD PELVIS [id number] 10:40:00 Name: RAMIN EPPS [facility] : 1970 Age/S: 49 / M [address] [facility] [address] Unit #: [id number] Loc: [address] Phys: Nicolas Tavares MD [place], [place] [address] Acct: [id number] Dis Date: Status: REG ER PHONE #: Exam Date: 02/24/2020 1527 FAX #: Reason: diffuse abd pain, blood in stool EXAMS: CPT CODE: [id number] CT ABD PELVIS W/CONT 14095 HISTORY: diffuse abd pain, blood in stool TECHNIQUE: Immediate and delayed [address] images were obtained through the abdomen and pelvis after IV administration of 100 mL of Isovue-370 contrast. Sagittal and coronal reformatted images were generated. Automated exposure reduction (Auto mA/Smart mA) was utilized in compliance with ACR Image Wisely with DLP of 635 mGy-cm. COMPARISON: None FINDINGS: THORACIC: Mild dependent subsegmental atelectasis. HEPATOBILIARY: Liver is normal without focal lesion. Gallbladder is normal. No biliary dilation. PANCREAS: Normal. SPLEEN: Normal. ADRENALS: Normal. GASTROINTESTINAL: Limited evaluation without oral contrast. Stomach is unremarkable. Multiple dilated small bowel loops measuring up to 4.3 cm in diameter. Transition point within the midline lower abdomen with decompressed distal small bowel. Normal appendix. Colon is unremarkable. GENITOURINARY: Subcentimeter left renal cyst. Right kidney is unremarkable. No hydroneph rosis. Urinary bladder is unremarkable. Seminal vesicles and prostate glan d are unremarkable. VASCULAR: No evidence of aortic aneurysm or dissection . LYMPHATICS: No enlarged lymph nodes by CT size criteria. PERITONE UM/OTHER: No intraperitoneal free air. Small pelvic free fluid. BONE S/SOFT TISSUES: Thoracolumbar dextroscoliosis. Degenerative changes of the sacroiliac joints and hips. IMPRESSION: Findings compatible with small bowel obstruction. Transition point wi thin the midline lower abdomen. LOCATION: LP PAGE 1 Signed Report (CONTINUED) Name: RAMIN EPPS [facility] : 1970 Age/S: 49 / M [address] Unit #: [id number] Loc: [address] Ph ys: Nicolas Tavares MD [place], [place] [address] Acct: [id number] Dis Date: Status: REG ER PHONE #: Exam Date: 02/24/2020 09 FAX #: Reason: diffuse abd pain, blood in stool EXAMS: CPT CODE: [id number] CT ABD PELVIS W/CONT 77098 <Continued> at 1040 Reported and signed by: Lisa Neal D.O. CC: Nicolas Tavares MD Technol ogist:Dylon Bonner RT(R),CT CTDI: DLP: Trnscb Date/Time: 02/24/2020 (1040) MinhP1 PAGE 2 Signed Report BASIC METABOLIC [id number] 09:55:00* Test Item Value Reference Range Interpretation Comments SODIUM (test code = NA) 140 mmol/L 128-145 N POTASSIUM (test code = K) 4.6 mmol/L 3.5-5.1 N CHLORIDE (test code = CL) 103.0 mmol/L 98-107 N CARBON DIOXIDE (test code = CO2) 27.4 mmol/L 22-29 N ANION GAP (test code = GAP) 14 mmol/L 10-20 N GLUCOSE (test code = GLU) 125 mg/dL 70-110 H BLOOD UREA NITROGEN (test code = BUN) 10 mg/dL 7-22 N GLOMERULAR FILTRATION RATE (test code = GFR) > 60 mL/min >=60 Estimated GFR by using Modified MDRD formula.Chronic kidney disease is defined as either kidney damageor GFR <60 mL/min/1.73 m2 for >3 months. CREATININE (test code = CREAT) 0.76 mg/dL 0.55-1.3 N BUN/CREATININE RATIO (test code = BUN/CREA) 13.2 10-20 N CALCIUM (test code = CA) 9.9 mg/dL 8.0-10.5 N HEPATIC FUNCTION [id number] 09:55:00* Test Item Value Reference Range Interpretation Comments TOTAL PROTEIN (test code = PROT) 9.4 gram/dL 6.1-7.8 H ALBUMIN (test code = ALB) 4.8 g/dL 3.3-4.4 H GLOBULIN (test code = GLOB) 4.6 G/DL 1-10 N ALBUMIN/GLOBULIN RATIO (test code = A/G) 1.0 0.75-1.50 N BILIRUBIN TOTAL (test code = BILT) 0.30 mg/dL 0.2-1.2 N BILIRUBIN DIRECT (test code = BILD) 0.10 mg/dL 0.0-0.30 N SGOT/AST (test code = AST) 34 U/L 10-39 N SGPT/ALT (test code = ALT) 30 U/L 10-69 N ALKALINE PHOSPHATASE TOTAL (test code = ALKP) 73 U/L 50-139 N [id number] 09:55:00* Test Item Value Reference Range Interpretation Comments LIPASE (test code = LIP) 124 Unit/L 144-286 L BASIC METABOLIC [id number] 09:50:00* Test Item Value Reference Range Interpretation Comments SODIUM (test code = NA) 140 mmol/L 128-145 N POTASSIUM (test code = K) 4.6 mmol/L 3.5-5.1 N CHLORIDE (test code = CL) 103.0 mmol/L 98-107 N CARBON DIOXIDE (test code = CO2) 27.4 mmol/L 22-29 N ANION GAP (test code = GAP) 14 mmol/L 10-20 N GLUCOSE (test code = GLU) 125 mg/dL 70-110 H BLOOD UREA NITROGEN (test code = BUN) 10 mg/dL 7-22 N GLOMERULAR FILTRATION RATE (test code = GFR) > 60 mL/min >=60 Estimated GFR by using Modified MDRD formula.Chronic kidney disease is defined as either kidney damageor GFR <60 mL/min/1.73 m2 for >3 months. CREATININE (test code = CREAT) 0.76 mg/dL 0.55-1.3 N BUN/CREATININE RATIO (test code = BUN/CREA) 13.2 10-20 N CALCIUM (test code = CA) 9.9 mg/dL 8.0-10.5 N HEPATIC FUNCTION [id number] 09:50:00* Test Item Value Reference Range Interpretation Comments TOTAL PROTEIN (test code = PROT) gram/dL 6.4-8.2 ALBUMIN (test code = ALB) g/dL 3.4-5.0 GLOBULIN (test code = GLOB) G/DL 1-10 ALBUMIN/GLOBULIN RATIO (test code = A/G) 0.75-1.50 BILIRUBIN TOTAL (test code = BILT) mg/dL 0.0-1.0 BILIRUBIN DIRECT (test code = BILD) mg/dL 0.0-0.20 SGOT/AST (test code = AST) IUnit/L 15-37 SGPT/ALT (test code = ALT) IUnit/L 12-78 ALKALINE PHOSPHATASE TOTAL (test code = ALKP) IUnit/L 45-117 [id number] 09:50:00* Test Item Value Reference Range Interpretation Comments LIPASE (test code = LIP) U/L 73.0-393.0 URINALYSIS [id number] 09:40:00* Test Item Value Reference Range Interpretation Comments UA COLOR (test code = COLU) YELLOW YELLOW UA APPEARANCE (test code = APPU) CLEAR CLEAR UA GLUCOSE DIPSTICK (test code = DGLUU) NEGATIVE mg/dL NEGATIVE UA BILIRUBIN DIPSTICK (test code = BILU) NEGATIVE NEGATIVE UA KETONE DIPSTICK (test code = KETU) NEGATIVE mg/dL NEGATIVE UA SPECIFIC GRAVITY (test code = SGU) >=1.030 1.001-1.035 UA BLOOD DIPSTICK (test code = MAGDALENA) NEGATIVE NEGATIVE UA PH DIPSTICK (test code = TASIA) 6.0 5.0-8.0 UA PROTEIN DIPSTICK (test code = PROU) 1+ mg/dL Neg-15 UA UROBILINIOGEN DIPSTICK (test code = URO) 1 mg/dL (1+) mg/dL 0.0 -0.2 UA NITRITE DIPSTICK (test code = BIB) NEGATIVE NEGATIVE UA LEUKOCYTE ESTERASE DIPSTICK (test code = LEUU) NEGATIVE uL NEGA TIVE UA MICROSCOPIC NEEDED? (test code = UAMICRO) YES UA WBC (test code = WBCU) 0-5 per HPF 0-5 UA RBC (test code = RBCU) 0-3 per HPF 0-5 UA EPITHELIAL CELLS (test code = EPIU) Few (2-5/hpf) per HPF Few UA BACTERIA (test code = BACU) FEW per HPF NONE Urine Source? Clean CatchPROTHROMBIN [id number] 09:38:00* Test Item Value Reference Range Interpretation Comments PROTHROMBIN TIME PATIENT (test code = PTP) 9.1 seconds 9.0-13.0 N INTERNATIONAL NORMAL RATIO (test code = INR) 0.9 0.8-1.2 N The therapeutic range for oral anticoagulant therapy formost indications is an international normalized ratio (INR)of between 2.0 and 3.0. The recommended therapeutic INRrange for various clinical situations is listed below: Clinical Situation INR range Pulmonary e mbolism treatment (2.0-3.0)Venous thrombosis treatmentVenous thrombosis prophylaxis (high risk surgery)Prevention of systemic embolism from: Acute myocardial infarction Valvular heart disease Atrial fibrillation Mechanical prosthetic heart valves (2.5-3.5) IS PATIENT ON ANTICOAGULANTS? NURINALYSIS [id number] 09:32:00* Test Item Value Reference Range Interpretation Comments UA COLOR (test code = COLU) YELLOW YELLOW UA APPEARANCE (test code = APPU) CLEAR CLEAR UA GLUCOSE DIPSTICK (test code = DGLUU) NEGATIVE mg/dL NEGATIVE UA BILIRUBIN DIPSTICK (test code = BILU) NEGATIVE NEGATIVE UA KETONE DIPSTICK (test code = KETU) NEGATIVE mg/dL NEGATIVE UA SPECIFIC GRAVITY (test code = SGU) >=1.030 1.001-1.035 UA BLOOD DIPSTICK (test code = MAGDALENA) NEGATIVE NEGATIVE UA PH DIPSTICK (test code = TASIA) 6.0 5.0-8.0 UA PROTEIN DIPSTICK (test code = PROU) 1+ mg/dL Neg-15 UA UROBILINIOGEN DIPSTICK (test code = URO) 1 mg/dL (1+) mg/dL 0.0 -0.2 UA NITRITE DIPSTICK (test code = BIB) NEGATIVE NEGATIVE UA LEUKOCYTE ESTERASE DIPSTICK (test code = LEUU) NEGATIVE uL NEGA TIVE UA MICROSCOPIC NEEDED? (test code = UAMICRO) UA WBC (test code = WBCU) per HPF 0-5 UA RBC (test code = RBCU) per HPF 0-5 UA EPITHELIAL CELLS (test code = EPIU) per HPF Few UA BACTERIA (test code = BACU) per HPF NONE Urine Source? Clean CatchCBC W/O [id number] 09:24:00* Test Item Value Reference Range Interpretation Comments WHITE BLOOD CELL (test code = WBC) 7.5 K/mm3 4.5-12.5 N RED BLOOD CELL (test code = RBC) 4.46 mill/mm3 4.0-5.8 N HEMOGLOBIN (test code = HGB) 13.9 gram/dL 13.0-17.5 N HEMATOCRIT (test code = HCT) 43.1 % 42.0-52.0 N MEAN CELL VOLUME (test code = MCV) 96.6 fL 80-98 N MEAN CELL HGB (test code = MCH) 31.2 picogram 27.0-33.0 N MEAN CELL HGB CONCETRATION (test code = MCHC) 32.3 gram/dL 33.0-36. 0 L RED CELL DISTRIBUTION WIDTH (test code = RDW) 14.1 % 11.6-16. 2 N RED CELL DISTRIBUTION WIDTH SD (test code = RDW-SD) 51.0 fL 37 .0-51.0 N PLATELET COUNT (test code = PLT) 219 K/mm3 150-450 N MEAN PLATELET VOLUME (test code = MPV) 9.2 fL 6.7-11.0 N Comprehensive Metabolic [id number] 02:31:02* Test Item Value Reference Range Interpretation Comments Sodium Level (test code = Sodium Level) 139.0 mmol/L 135.0-145.0 Potassium Level (test code = Potassium Level) 4.2 mmol/L 3.5-5.1 Chloride Level (test code = Chloride Level) 104 mmol/L 98-105 CO2 (test code = CO2) 22 mmol/L 22-29 Anion Gap (test code = Anion Gap) 13 mmol/L 7-16 BUN (test code = BUN) 6.00 mg/dL 6.00-20.00 Creatinine Level (test code = Creatinine Level) 0.80 mg/dL 0.70-1 .20 BUN/Creat Ratio (test code = BUN/Creat Ratio) 8 N Glucose Level (test code = Glucose Level) 111 mg/dL 70-115 Calcium Level (test code = Calcium Level) 9.7 mg/dL 8.3-10.5 Alk Phos (test code = Alk Phos) 73 U/L 40-129 Bilirubin Total (test code = Bilirubin Total) 0.4 mg/dL 0.1-0.9 Albumin Level (test code = Albumin Level) 4.7 g/dL 3.5-5.2 Protein Total (test code = Protein Total) 7.8 g/dL 6.4-8.3 ALT (test code = ALT) 18 U/L 1-41 AST (test code = AST) 33 U/L 1-40 Globulin (test code = Globulin) 3.1 g/dL 2.9-3.1 A/G Ratio (test code = A/G Ratio) 1.5 ratio N Comprehensive Metabolic [id number] 02:31:02* Test Item Value Reference Range Interpretation Comments Sodium Level (test code = Sodium Level) 139.0 mmol/L 135.0-145.0 Potassium Level (test code = Potassium Level) 4.2 mmol/L 3.5-5.1 Chloride Level (test code = Chloride Level) 104 mmol/L 98-105 CO2 (test code = CO2) 22 mmol/L 22-29 Anion Gap (test code = Anion Gap) 13 mmol/L 7-16 BUN (test code = BUN) 6.00 mg/dL 6.00-20.00 Creatinine Level (test code = Creatinine Level) 0.80 mg/dL 0.70-1 .20 BUN/Creat Ratio (test code = BUN/Creat Ratio) 8 N Glucose Level (test code = Glucose Level) 111 mg/dL 70-115 Calcium Level (test code = Calcium Level) 9.7 mg/dL 8.3-10.5 Alk Phos (test code = Alk Phos) 73 U/L 40-129 Bilirubin Total (test code = Bilirubin Total) 0.4 mg/dL 0.1-0.9 Albumin Level (test code = Albumin Level) 4.7 g/dL 3.5-5.2 Protein Total (test code = Protein Total) 7.8 g/dL 6.4-8.3 ALT (test code = ALT) 18 U/L 1-41 AST (test code = AST) 33 U/L 1-40 Globulin (test code = Globulin) 3.1 g/dL 2.9-3.1 A/G Ratio (test code = A/G Ratio) 1.5 ratio N eGFR AA (test code = eGFR AA) >60 mL/min/1.73 m2 N eGFR (estimated Glomerular Filtration Rate) is an estimated value, calculated from the patient's serum creatinine using the MDRD equation. It is NOT the patient's actual GFR. The eGFR provides a more clinically useful measure of kidney disease than serum creatinine alone.This calculation takes sex and race into account, if the information is provided. If the race is not provided, and the patient is -[place], multiply by 1.212. If sex is not provided, and the patient is female, multiply by 0.742. Results for patients <18 years of age have not been validated by the MDRD study and should be interpreted with caution. eGFR Result Interpretation:eGFR > or = 60 is in the Normal RangeeGFR < 60 may mean kidney diseaseeGFR < 15 may mean kidney failure Ranges recommended by the National Kidney Foundation, http://nkdep.nih.gov Lipase [id number] 02:31:02* Test Item Value Reference Range Interpretation Comments Lipase Level (test code = Lipase Level) 15 U/L 13-60 Comprehensive Metabolic [id number] 02:31:02* Test Item Value Reference Range Interpretation Comments Sodium Level (test code = Sodium Level) 139.0 mmol/L 135.0-145.0 Potassium Level (test code = Potassium Level) 4.2 mmol/L 3.5-5.1 Chloride Level (test code = Chloride Level) 104 mmol/L 98-105 CO2 (test code = CO2) 22 mmol/L 22-29 Anion Gap (test code = Anion Gap) 13 mmol/L 7-16 BUN (test code = BUN) 6.00 mg/dL 6.00-20.00 Creatinine Level (test code = Creatinine Level) 0.80 mg/dL 0.70-1 .20 BUN/Creat Ratio (test code = BUN/Creat Ratio) 8 N Glucose Level (test code = Glucose Level) 111 mg/dL 70-115 Calcium Level (test code = Calcium Level) 9.7 mg/dL 8.3-10.5 Alk Phos (test code = Alk Phos) 73 U/L 40-129 Bilirubin Total (test code = Bilirubin Total) 0.4 mg/dL 0.1-0.9 Albumin Level (test code = Albumin Level) 4.7 g/dL 3.5-5.2 Protein Total (test code = Protein Total) 7.8 g/dL 6.4-8.3 ALT (test code = ALT) 18 U/L 1-41 AST (test code = AST) 33 U/L 1-40 Globulin (test code = Globulin) 3.1 g/dL 2.9-3.1 A/G Ratio (test code = A/G Ratio) 1.5 ratio N eGFR AA (test code = eGFR AA) >60 mL/min/1.73 m2 N eGFR (estimated Glomerular Filtration Rate) is an estimated value, calculated from the patient's serum creatinine using the MDRD equation. It is NOT the patient's actual GFR. The eGFR provides a more clinically useful measure of kidney disease than serum creatinine alone.This calculation takes sex and race into account, if the information is provided. If the race is not provided, and the patient is -[place], multiply by 1.212. If sex is not provided, and the patient is female, multiply by 0.742. Results for patients <18 years of age have not been validated by the MDRD study and should be interpreted with caution. eGFR Result Interpretation:eGFR > or = 60 is in the Normal RangeeGFR < 60 may mean kidney diseaseeGFR < 15 may mean kidney failure Ranges recommended by the National Kidney Foundation, http://nkdep.nih.gov eGFR Non-AA (test code = eGFR Non-AA) >60.00 mL/min/1.73 m2 N eGFR (estimated Glomerular Filtration Rate) is an estimated value, calculated from the patient's serum creatinine using the MDRD equation. It is NOT the patient's actual GFR. The eGFR provides a more clinically useful measure of kidney disease than serum creatinine alone.This calculation takes sex and race into account, if the information is provided. If the race is not provided, and the patient is -[place], multiply by 1.212. If sex is not provided, and the patient is female, multiply by 0.742. Results for patients <18 years of age have not been validated by the MDRD study and should be interpreted with caution. eGFR Result Interpretation:eGFR > or = 60 is in the Normal RangeeGFR < 60 may mean kidney diseaseeGFR < 15 may mean kidney failure Ranges recommended by the National Kidney Foundation, http://nkdep.nih.gov Automated [id number] 02:22:39* Test Item Value Reference Range Interpretation Comments Neutro Auto (test code = Neutro Auto) 57.1 % 36.0-70.0 Lymph Auto (test code = Lymph Auto) 33.7 % 12.0-44.0 Blanco Auto (test code = Blanco Auto) 6.9 % 0.0-11.0 Eos, Auto (test code = Eos, Auto) 1.7 % 0.0-7.0 Basophil Auto (test code = Basophil Auto) 0.5 % 0.0-2.0 Neutro Absolute (test code = Neutro Absolute) 4.4 x10 1.6-7.4 Lymph Absolute (test code = Lymph Absolute) 2.60 x10 .50-4.60 Blanco Absolute (test code = Blanco Absolute) .53 x10 .00-1.20 Eos Absolute (test code = Eos Absolute) 0.13 x10 0.00-0.74 Baso Absolute (test code = Baso Absolute) 0.04 x10 0.00-0.21 IG [id number] 02:22:39* Test Item Value Reference Range Interpretation Comments IG (test code = IG) 0.1 % 0.0-5.0 IG Abs (test code = IG Abs) 0 x10 N Complete Blood Count with [id number] 02:22:38* Test Item Value Reference Range Interpretation Comments WBC (test code = WBC) 7.7 x10 4.4-10.5 RBC (test code = RBC) 4.49 x10 4.10-5.70 Hgb (test code = Hgb) 14.8 g/dL 13.4-17.4 Hct (test code = Hct) 43.2 % 38.7-52.0 MCV (test code = MCV) 96.20 fL 80.00-100.00 MCHC (test code = MCHC) 34.30 g/dL 32.00-37.50 RDW CV (test code = RDW CV) 13.0 % 11.5-14.5 MCH (test code = MCH) 33.0 pg 27.0-32.5 H Platelets (test code = Platelets) 292.0 x10 140.0-440.0 MPV (test code = MPV) 9.0 fL N Slide Review (test code = Slide Review) Auto Auto Result created by [email or web address] nRBC (test code = nRBC) 0 N NRBC Abs (test code = NRBC Abs) 0.00 x10 N IPF (test code = IPF) 0 % N Bedside [id number] 21:30:00* Test Item Value Reference Range Interpretation Comments Bedside Glucose (test code = 41255-2) 118 70-120 Meter ID: [id number] 2019-04-01 06:32:00 [place] [address] Patient Name: RAMIN EPPS MR #: [id number] : 1970 Age/Sex: 48/M Req #: [id number] Adm Physician: CHELI MOORE MD Ordered by: CHELI MOORE MD Report #: [id number] Location: MED/SURG Room/Bed: [facility] Procedure: DX/ABDOMEN 2 VIEW Exam Date: 04/01/19 Exam T nia: 0615 REPORT STATUS: Signed Exam: Abdominal film Clinical History: Small bowel obstruction Leeroy doon: ALFONSO 03/31/2019 DISCUSSION: Frontal view of the abdomen shows a nono bstructive bowel gas pattern with mild amount of retained stool.There are no d ilated, air-filled loops of bowel. Residual contrast is noted throughout th e colon. No acute bony abnormalities. No abnormal calcifications. Lung bas es are clear. The previously visualized enteric tube has been removed. IMPRESSION: 1. No air-filled, dilated loops of bowel are identified. Resid ual contrast is noted throughout the colon. The staff physician below has personally reviewed this exam on the date of dictation. S igned by: Dr. Landon Gustafson M.D. on 04/01/2019 6:34 AM Dictated By: Josiah GUSTAFSON MD 3 Transcribed By: CASSY on 04/01/19633 COPY TO: CHELI MOORE MD ABDOMEN 2 [id number] 08:10:00 [place] [address] Patient Name: RAMIN EPPS MR #: [id number] : 1970 Age/Sex: 48/M Req #: [id number] Adm Physician: CHELI MOORE MD Ordered by: CHELI MOORE MD Report #: [id number] Location: MED/SURG Room/Bed: [facility] Procedure: DX/ABDOMEN 2 VIEW Exam Date: 03/31/19 Exam T nia: 0756 REPORT STATUS: Signed Exam: Abdominal film Clinical History: Small bowel obstruction follow-up Comparison: None. DISCUSSION: Enteric tube with tip overlying the gastric fundus. Contrast within the colon. Scattered air within the col on and small bowel with mild dilation of bowel measuring up to 3.5 cm. IM PRESSION: Decreased small bowel distention. Signed b y: Dr. Janel Mark M.D. on 03/31/2019 8:18 AM Dictated By: JANEL VU MD 7 Transc ribed By: CASSY on 03/31/19817 COPY TO: CHELI MOORE MD Sodium Uktru7027-51-09 06:04:00* Test Item Value Reference Range Interpretation Comments Sodium Level (test code = 2951-2) 138 136-145 [facility]Potassium Povcd9464-36-33 06:04:00* Test Item Value Reference Range Interpretation Comments Potassium Level (test code = 2823-3) 3.9 3.5-5.1 [facility] CenterChloride Kxitd7434-13-93 06:04:00* Test Item Value Reference Range Interpretation Comments Chloride Level (test code = 2075-0) 109 98-107 H [facility] CenterCarbon Dioxide Qxsao5694-56-81 06:04:00* Test Item Value Reference Range Interpretation Comments Carbon Dioxide Level (test code = 2028-9) 23 22-29 [facility] CenterAnion Mvk3758-15-72 06:04:00* Test Item Value Reference Range Interpretation Comments Anion Gap (test code = 56006-1) 9.9 8-16 [facility] CenterBlood Urea Ipdvpjlg6276-24-29 06:04:00* Test Item Value Reference Range Interpretation Comments Blood Urea Nitrogen (test code = 3094-0) 12 7-26 [facility] CenterCreatinine2019-05-18 06:04:00* Test Item Value Reference Range Interpretation Comments Creatinine (test code = 2160-0) 0.78 0.72-1.25 [facility] CenterBUN/Creatinine Dxpzf4578-33-67 06:04:00* Test Item Value Reference Range Interpretation Comments BUN/Creatinine Ratio (test code = 3097-3) 15 6-25 [facility] CenterEstimat Glomerular Filtration Rate 2019-03-31 06:04:00* Test Item Value Reference Range Interpretation Comments Estimat Glomerular Filtration Rate (test code = 154664901) > 60 >60 Ranges were taken from the National Kidney Disease Education Program and the [facility] literature.Reference ranges:60 or greater: Xzpiwt30-23 ( for 3 consecutive months): Chronic kidney disease 15 or less: Kidney failureBrownfield [facility] Medical CenterGlucose Uudea5599-74-53 06:04:00* Test Item Value Reference Range Interpretation Comments Glucose Level (test code = FVU4069) 86 74-118 [facility] CenterCalcium Qdhql2047-58-36 06:04:00* Test Item Value Reference Range Interpretation Comments Calcium Level (test code = 19371-5) 9.3 8.4-10.2 [facility] CenterWhite Blood Eddhw8632-46-94 05:43:00* Test Item Value Reference Range Interpretation Comments White Blood Count (test code = 6690-2) 7.27 4.8-10.8 [facility] CenterRed Blood Snxqd8911-75-57 05:43:00* Test Item Value Reference Range Interpretation Comments Red Blood Count (test code = 789-8) 3.70 4.3-5.7 L [facility] CenterHemoglobin2019-05-18 05:43:00* Test Item Value Reference Range Interpretation Comments Hemoglobin (test code = 09045-4) 12.0 14.0-18.0 L [facility] CenterHematocrit2019-05-18 05:43:00* Test Item Value Reference Range Interpretation Comments Hematocrit (test code = 4544-3) 35.8 38.2-49.6 L [facility] CenterMean Corpuscular Zxqjtz1056-62-06 05:43:00* Test Item Value Reference Range Interpretation Comments Mean Corpuscular Volume (test code = 787-2) 96.8 81-99 [facility] CenterMean Corpuscular Iwraoirxrv1692-78-31 05:43:00* Test Item Value Reference Range Interpretation Comments Mean Corpuscular Hemoglobin (test code = 785-6) 32.4 28-32 H [facility] CenterMean Corpuscular Hemoglobin Concent 2019-03-31 05:43:00* Test Item Value Reference Range Interpretation Comments Mean Corpuscular Hemoglobin Concent (test code = 786-4) 33.5 31-35 [facility] CenterRed Cell Distribution Igdjo0778-00-48 05:43:00* Test Item Value Reference Range Interpretation Comments Red Cell Distribution Width (test code = 39378-3) 12.5 11.7 -14.4 [facility] CenterPlatelet Nquyo7912-90-60 05:43:00* Test Item Value Reference Range Interpretation Comments Platelet Count (test code = 777-3) 175 140-360 [facility] CenterNeutrophils (%) (Auto)2019-03-31 05:43:00 * Test Item Value Reference Range Interpretation Comments Neutrophils (%) (Auto) (test code = 68739-8) 60.7 38.7-80.0 [facility] CenterLymphocytes (%) (Auto)2019-03-31 05:43:00 * Test Item Value Reference Range Interpretation Comments Lymphocytes (%) (Auto) (test code = 736-9) 29.7 18.0-39.1 [facility] CenterMonocytes (%) (Auto)2019-03-31 05:43:00* Test Item Value Reference Range Interpretation Comments Monocytes (%) (Auto) (test code = 5905-5) 7.7 4.4-11.3 [facility] CenterEosinophils (%) (Auto)2019-03-31 05:43:00 * Test Item Value Reference Range Interpretation Comments Eosinophils (%) (Auto) (test code = 713-8) 1.2 0.0-6.0 [facility] CenterBasophils (%) (Auto)2019-03-31 05:43:00* Test Item Value Reference Range Interpretation Comments Basophils (%) (Auto) (test code = 706-2) 0.4 0.0-1.0 [facility] CenterIM GRANULOCYTES %2019-03-31 05:43:00* Test Item Value Reference Range Interpretation Comments IM GRANULOCYTES % (test code = IM GRANULOCYTES %) 0.3 0.0- 1.0 [facility] CenterNeutrophils # (Auto)2019-03-31 05:43:00* Test Item Value Reference Range Interpretation Comments Neutrophils # (Auto) (test code = 751-8) 4.4 2.1-6.9 [facility] CenterLymphocytes # (Auto)2019-03-31 05:43:00* Test Item Value Reference Range Interpretation Comments Lymphocytes # (Auto) (test code = 78435-3) 2.2 1.0-3.2 [facility] CenterMonocytes # (Auto)2019-03-31 05:43:00* Test Item Value Reference Range Interpretation Comments Monocytes # (Auto) (test code = 742-7) 0.6 0.2-0.8 [facility] CenterEosinophils # (Auto)2019-03-31 05:43:00* Test Item Value Reference Range Interpretation Comments Eosinophils # (Auto) (test code = 711-2) 0.1 0.0-0.4 [facility] CenterBasophils # (Auto)2019-03-31 05:43:00* Test Item Value Reference Range Interpretation Comments Basophils # (Auto) (test code = 704-7) 0.0 0.0-0.1 [facility] CenterAbsolute Immature Granulocyte (auto 2019-03-31 05:43:00* Test Item Value Reference Range Interpretation Comments Absolute Immature Granulocyte (auto (bety t code = Absolute Immature Granulocyte (auto) 0.02 0-0.1 [facility] CenterABDOMEN-1VIEW (KUB)2019-03-30 06:25:00 [facility] [address] [place] [address] Patient Name: RAMIN EPPS MR #: [id number] : 1970 Age/Sex: 48/M Req #: [id number] Adm Physician: CHELI MOORE MD Ordered by: CHELI MOORE MD Report #: [id number] Location: [facility] Room/Bed: [place] [address] Procedure: DX/ABDOMEN-1VIEW (KUB) Exam Date: 03/30/19 E xam Time: 0551 REPORT STATUS: Sulema d Exam: Abdominal film Clinical History: Small bowel obstruction Comparison: CT abdomen and pelvis 03/29/2019 DISCUSSION: Frontal view of t he abdomen shows centrally located mild to moderately dilated loops of small b owel in the left mid and lower quadrant, with maximal measurement of 4.1 cm. C ontrast is noted within the large bowel. There are no abnormal calcifications .No acute bone abnormality. Enteric tube is noted on the left hemidiaphragm with distal tip projecting in the proximal fundus and side-port likely in the distal esophagus. IMPRESSION: 1. Enteric tube is noted on the left hemidiaphragm with distal tip projecting in the proximal fundus and side-port likely in the distal esophagus. Further advancement is recommended. 2. M ildly to moderately dilated loops of small bowel in the left mid and lower abd omen consistent with small bowel obstruction. The staff physician below has personally reviewed this exam on the date of dictation. S igned by: Dr. Landon Gustafson M.D. on 03/30/2019 6:28 AM Dictated By: Josiah GUSTAFSON MD 7 Transcribed By: CASSY on 03/30/19627 COPY TO: CHELI MOORE MD Phosphorus Nqkun8332-10-79 06:17:00* Test Item Value Reference Range Interpretation Comments Phosphorus Level (test code = XFR9525) 2.8 2.3-4.7 [facility] CenterMagnesium Bztws4099-54-00 06:17:00* Test Item Value Reference Range Interpretation Comments Magnesium Level (test code = 47435-7) 2.1 1.3-2.1 [facility] CenterTotal Bgfortjej4892-95-58 06:17:00* Test Item Value Reference Range Interpretation Comments Total Bilirubin (test code = 1975-2) 1.0 0.2-1.2 [facility] CenterAspartate Amino Transf (AST/SGOT) 2019-03-30 06:17:00* Test Item Value Reference Range Interpretation Comments Aspartate Amino Transf (AST/SGOT) (test code = Aspartate Amino Transf (AST/SGOT)) 23 5-34 [facility] CenterAlanine Aminotransferase (ALT/SGPT) 2019-03-30 06:17:00* Test Item Value Reference Range Interpretation Comments Alanine Aminotransferase (ALT/SGPT) (test code = 1742-6) 22 0-55 [facility] CenterTotal Ogputej6439-15-54 06:17:00* Test Item Value Reference Range Interpretation Comments Total Protein (test code = 2885-2) 6.4 6.5-8.1 L [facility] CenterAlbumin2019-05-17 06:17:00* Test Item Value Reference Range Interpretation Comments Albumin (test code = 1751-7) 3.5 3.5-5.0 [facility] CenterGlobulin2019-05-17 06:17:00* Test Item Value Reference Range Interpretation Comments Globulin (test code = 51804-2) 2.9 2.3-3.5 [facility] CenterAlbumin/Globulin Zxznr0700-24-04 06:17:00 * Test Item Value Reference Range Interpretation Comments Albumin/Globulin Ratio (test code = 1759-0) 1.2 0.8-2.0 [facility] CenterAlkaline Ofoczofwahs0861-28-93 06:17:00* Test Item Value Reference Range Interpretation Comments Alkaline Phosphatase (test code = 6768-6) 59 40-150 [facility] CenterABDOMEN-1VIEW (KUB)2019-03-29 22:49:00 [facility] [address] [place] [address] Patient Name: RAMIN EPPS MR #: [id number] : 1970 Age/Sex: 48/M Req #: [id number] Adm Physician: CHELI MOORE MD Ordered by: CHELI MOORE MD Report #: [id number] Location: [facility] Room/Bed: [facility] 182-1 Procedure: DX/ABDOMEN-1VIEW (KUB) Exam Date: 03/29/19 E xam Time: 2153 REPORT STATUS: Sulema d Exam: Abdominal film Clinical History: NG tube placement Comp arison: CT abdomen and pelvis 03/29/2019 DISCUSSION: Frontal view of the abd omen shows dilated loops of small bowel in the left lower quadrant with juan l measurement of 3.7 cm. Contrast is noted in the collecting systems. There ar e no abnormal calcifications.No acute bone abnormality. Lung bases are jann sly clear. Enteric tube is noted below the left hemidiaphragm, with distal tip projecting in the stomach fundus IMPRESSION: 1. Enteric tube und er the left hemidiaphragm with distal tip projecting in the stomach fundus. 2. Dilated small bowel loops consistent with previously visualized small bowel obstruction. The staff physician below has personally reviewed this exam on the date of dictation. Signed by: Dr. Landon restrepo M.D. on 03/29/2019 10:51 PM Dictated By: LANDON GUSTAFSON MD Electronic ally Signed By: LANDON GUSTAFSON MD on 03/29/192250 Transcribed By: CASSY on 0 03/29/192250 COPY TO: CHELI MOORE MD CT ABDOMEN/PELVIS W 2019-03-29 20:16:00 [place] [address] Patient Name: RAMIN EPPS MR #: [id number] : 1970 Age/Sex: 48/M Req #: [id number] Adm Physician: CHELI MOORE MD Ordered by: CHRISTOFER HAYES NP Report #: [id number] Location: [facility] Room/Bed: [place] [address]-1 Procedure: [id number] CT/CT ABDOMEN/PELVIS W Exam Date: 03/29/19 Exam Time: 1929 REPORT STATUS: Sig deepa EXAM: CT of the abdomen and pelvis WITH contrast HISTORY: nasuea, vomiting, concern for SBO or ilieus COMPARISON: None. TECHNIQUE: T he abdomen and pelvis were scanned utilizing a multidetector helical scanner. Coronal and sagittal reformats are provided. PROTOCOL: Routine IV CONTRAST: 100 cc of Isovue-370. ORAL CONTRAST: D ilute Gastrografin RADIATION DOSE: Total DLP: 232.53 mGy*cm Estimated effective dose: (DLP x 0.015 x size factor) Dose modulation, iterative reconstruction, and/or weight based adjustment of the mA /kV was utilized to reduce the radiation dose to as low as reasonably achievab le. COMPLICATIONS: None FINDINGS: LOWER THORAX: Unremarkabl e. HEPATOBILIARY: No mass. No biliary dilation. The gallbladder is partially contracted, no calcified stone. SPLEEN: No splenomegaly. PANC REAS: No focal masses or ductal dilatation. ADRENALS: No discrete adrena l nodule. KIDNEYS/URETERS: No hydronephrosis, stones, or definite solid mas s lesions. PELVIC ORGANS/BLADDER: The urinary bladder is decompressed, which limits evaluation. GI TRACT: Multiple loops of dilated fluid-eddie led proximal small bowel, measuring up to 4.2 cm (axial image 43), with short segment transition to nondistended decompressed small bowel. The distal small bowel and colon are relatively decompressed. The appendix is not definitivel y seen, but there is no specific evidence of acute appendicitis. PERITONE UM / RETROPERITONEUM: Small volume of free fluid within the pelvis. LYMPH NODE S: No pathologically enlarged lymph node. VESSELS: Mild scattered atherosclero tic vascular calcifications. BONES: No aggressive osseous lesion or acute fra cture. SOFT TISSUES: Unremarkable. IMPRESSION: Findings compatible with a high-grade small bowel obstruction. Signed by: Mike Stevens, M.M.M. on 03/29/2019 8:25 PM Dictated By: DONTE NIXON DO Electronicall y Signed By: DONTE NIXON DO on 03/29/192024 Transcribed By: CASSY on 2024 COPY TO: CHRISTOFER HAYES NP ABDOMEN ACUTE SERIES W/[facility]0008-40-42 18:08:00 [place] [address] Patient Name: RAMIN EPPS MR #: [id number] : 1970 Age/Sex: 48/M Req #: [id number] Adm Physician: Ordered by: CHRISTOFER HAYES RELIGIOUS ACTIVITIES DIRECTOR Report #: [id number] Location: ER Room/Bed: Procedure: DX/ABDOMEN ACUTE SERIES W/PA CXR Exam Date: 03/29/19 Exam Time: 174 REPORT STA TUS: Signed RADIOGRAPH(S) OF THE ABDOMEN AND PELVIS, 3 view(s) including an u pright views of the abdomen and the chest HISTORY: Stomach pain, epigast max pain, peptic ulcers, rule out free air COMPARISON: None available. FINDINGS: Overlying monitoring leads. No evidence of free air. A single mildly dilated segment of small bowel in the left mid abdomen, 3.[address] Small air-fluid levels within the left hemiabdomen. Possibly of bowel g as in general, but there is visible bowel gas and stool in the proximal to mid colon. No definite urinary tract calcification. Phleboliths within the left hemipelvis. The bones are partially obscured by stool and overlying bowel gas. IMPRESSION: 1. Mildly dilated small bowel within the left hemiabdo men, considerations include ileus or partial small bowel obstruction. Surveill ance follow-up abdominal radiographs would provide further evaluation. 2. N o free air. Signed by: Cristi StevensOMercedes, M.M.M. on 03/29/2019 6:11 PM Dictated By: DONTE NIXON DO 10 COPY TO: Sascha HAYES NP Stool Occult Msijs9553-91-50 17:37:00* Test Item Value Reference Range Interpretation Comments Stool Occult Blood (test code = 2335-8) NEGATIVE NEGATIVE [facility] CenterAmylase Czfmj7992-70-64 16:08:00* Test Item Value Reference Range Interpretation Comments Amylase Level (test code = 1798-8) 68 25-125 [facility] CenterLipase2019-05-16 16:08:00* Test Item Value Reference Range Interpretation Comments Lipase (test code = 3040-3) 20 8-78 [facility] CenterProthrombin Yhtc0583-48-70 15:52:00* Test Item Value Reference Range Interpretation Comments Prothrombin Time (test code = 5902-2) 12.6 11.9-14.5 [facility] CenterProthromb Time International Ratio 2019-03-29 15:52:00* Test Item Value Reference Range Interpretation Comments Prothromb Time International Ratio (test code = 6301-6) 0.90 Oral Anticoagulant Therapy INR Values:1. Low Intensity Therapy 1.5 - 2.02 . Moderate Intensity Therapy 2.0 - 3.03. High Intensity Therapy(1) 2.5 - 3. 54. High Intensity Therapy(2) 3.0 - 4.05. Panic Value INR > 5.0 [facility] CenterActivated Partial Thromboplast Time 2019-03-29 15:52:00* Test Item Value Reference Range Interpretation Comments Activated Partial Thromboplast Time (test code = 77781-2) 29.0 23.8-35.5 [facility] CenterUrine Opiates Yymsht0213-96-19 14:25:00* Test Item Value Reference Range Interpretation Comments Urine Opiates Screen (test code = 06814-1) NEGATIVE NEGATIVE ALL TESTS PERFORMED MANUALLY ON BIORAD TOX/SEE TESTBrownfield Regional Medical CenterUrine Barbiturates Htwfeu2049-22-47 14:25:00* Test Item Value Reference Range Interpretation Comments Urine Barbiturates Screen (test code = 155908357) NEGATIVE NEGA TIVE [facility] CenterUrine Phencyclidine Wetavj5703-92-94 14:25:00* Test Item Value Reference Range Interpretation Comments Urine Phencyclidine Screen (test code = 15029-5) NEGATIVE NEGAT SHAHIDA [facility] CenterUrine Amphetamines Ltiviy4021-85-38 14:25:00* Test Item Value Reference Range Interpretation Comments Urine Amphetamines Screen (test code = 90641-2) NEGATIVE NEGATI VE [facility] CenterUrine Methamphetamines Hfjwgy4920-07-00 14:25:00* Test Item Value Reference Range Interpretation Comments Urine Methamphetamines Screen (test code = Urine Metha mphetamines Screen) NEGATIVE NEGATIVE [facility] CenterUrine Benzodiazepines Bplsov1518-90-27 14:25:00* Test Item Value Reference Range Interpretation Comments Urine Benzodiazepines Screen (test code = 32565-8) NEGATIVE NEG ATIVE [facility] CenterUrine Cocaine Bnqbws1755-52-92 14:25:00* Test Item Value Reference Range Interpretation Comments Urine Cocaine Screen (test code = 3398-5) NEGATIVE NEGATIVE [facility] CenterUrine Cannabinoids Katfwy6214-06-79 14:25:00* Test Item Value Reference Range Interpretation Comments Urine Cannabinoids Screen (test code = 92658-1) NEGATIVE NEGATI VE THESE RESULTS ARE FOR MEDICAL TREATMENT ONLYTHIS REPORT CONTAINS UNCONFIR MED SCREENING RESULTS*POSITIVE RESULTS WILL BE CONFIRMED BY REFERENCE LAB UPON R EQUEST CUT-OFFDRUG CLASS CONCENTRATION ng/mLAmphetamines 1000Methamphetamines 1000Cocaine 300Opiate 300Phencyc lidine 25Cannabinoid 50Barbiturates 300Benzodiazepine 300Methadone 300[facility] CenterUrine Methadone Cibffj5302-69-92 14:25:00* Test Item Value Reference Range Interpretation Comments Urine Methadone Screen (test code = 50967-6) NEGATIVE NEGATIVE THESE RESULTS ARE FOR MEDICAL TREATMENT ONLYTHIS REPORT CONTAINS UNCONFIR MED SCREENING RESULTS*POSITIVE RESULTS WILL BE CONFIRMED BY REFERENCE LAB UPON R EQUEST CUT-OFFDRUG CLASS CONCENTRATION ng/mLAmphetamines 1000Methamphetamines 1000Cocaine Metabolite 300Opiate 300Phencyc lidine 25Cannabinoid 50Barbiturates 300Benzodiazepine 300Methadone 300[facility] CenterXR Chest 1 View Pnosavj6787-91-04 12:39:57Patient: RAMIN EPPS Date/Time04/30/2018 11:18 CDTReason for ExamShortness of breathReportXR Chest 1 View FrontalLOCATION: [id number]: Shortness of breathCOMPARISON: 05/22/10FIND INGS:The cardiomediastinal silhouette is unremarkable. There is no focal consol idation. There is no pleural effusion or pneumothorax.IMPRESSION:No acute cardi opulmonary disease. Final Dictated by: MD Brown Daisha ADictated DT/TM: 04/30/2018 12:39 pmSigned by: MD Brown Daisha ASignmarta (Electronic Si gnature): 04/30/2018 12:39 pmCT Abdomen and Pelvis w/ Zsgkevhj5417-34-28 03:09:20Patient: RAMIN EPPS Date/Time04/30/2018 02:58 CDTReason for ExamAbdominal painReportCT ABDOMEN AND PELVIS WITH CONTRASTLOCATION: R16.INDICATION: Abdominal pain.COMPARISON: None.TECHNIQUE: Volumetric CT acquisition of the abdomen and pelvis after intravenous administration of 100 mL Omnipaque 300. Axial images were reconstructed. One or more of the following radiation dose reduction techniques was used: automated exposure control, adjustment of the mA and/or kV according to patient size, and/or utilization of iterative reconstructive technique.FINDINGS:The lung bases are clear. Visualized portions of the heart are normal.The liver, gallbladder, pancreas, spleen, and adrenal glands are normal.The kidneys, ureters, and bladder are normal. The prostate and seminal vesicles are normal. A moderate length segment of small bowel is mildly dilated with air-fluid levels. There is no focal transition point to suggest obstruction. No small bowel wall thickening is visualized. The appendix and colon are normal.There is no lymphadenopathy, vascular abnormality, free air, or focal osseous abnormality in the abdomen or pelvis. A small amount of intraperitoneal free fluid is present.IMPRESSION:1. Nonspecific mild dilation of a moderate length segment of small bowel with no focal transition point to suggest obstruction.2. Small amount of intraperitoneal free fluid. Final Dictated by: MD Ocampo Christopher ADictated DT/TM: 04/30/2018 3:01 amSigned by: MD Ocampo Christopher ASigned (Electronic Signature): 04/14 3:09 am
--- NOTE | 2020-08-28 16:43 | Diagnostic Imaging Report ---
TECHNIQUE: Frontal view of the chest. INDICATION: ^Epigastric pain ^[id number] ^1620 COMPARISON: 04/01/2020 DISCUSSION: Limited evaluation due to portable technique. Lines and hardware: Overlying EKG leads are noted. Heart and mediastinum: Within normal limits. Lungs and pleura: No focal airspace consolidation. No pleural effusion. No pneumothorax. Soft tissues and bones: No acute abnormality. IMPRESSION: Negative for acute intrathoracic process. Signed by: Shalom Heath MD on 08/28/2020 4:43 PM
--- NOTE | 2020-08-28 17:07 | NUR ---
ultrasound in room
--- NOTE | 2020-08-28 17:43 | NUR ---
notified of heartrate. no further orders.
[2020-08-28] MEDS ORDERED: FENTANYL CITRATE/PF 100MCG/2 ML INJ IV ONE ×2 (17:45)
--- NOTE | 2020-08-28 17:46 | Diagnostic Imaging Report ---
EXAM: Gallbladder Ultrasound INDICATION: ^epigastric pain COMPARISON: CT abdomen/pelvis 03/29/2019 TECHNIQUE: Transverse and longitudinal images of the gallbladder were obtained. FINDINGS: Liver: Mildly enlarged liver with right hepatic lobe measuring up to 17.1 cm. No visualized focal sonographic lesions. Gallbladder: Stones/Sludge: None Wall: 0.2 cm Appearance: No wall thickening, pericholecystic fluid or hydrops. Sonographic Pandya's Sign: Negative Bile Ducts: Intrahepatic Ducts: No dilatation Extrahepatic Ducts: Common bile duct measures 0.3 cm, no dilatation Visualized portions of the right kidney are unremarkable. Right kidney measures up to 11 cm in length. Visualized portions of the pancreas are sonographically unremarkable. Free Fluid: No ascites or pleural effusion IMPRESSION: 1. No acute sonographic abnormalities visualized in the right upper abdominal quadrant. 2. Mild hepatomegaly. Signed by: Dr. Amado Dillon M.D. on 08/28/2020 5:42 PM
[2020-08-28] MEDS ORDERED: FENTANYL CITRATE/PF 100MCG/2 ML INJ ONE (17:49)
--- NOTE | 2020-08-28 17:52 | NUR ---
notified lab of uds added per
[2020-08-28 18:03] LABS: AMPHETAMINES SCREEN,URINE NEGATIVE (NEGATIVE); BENZODIAZEPINES SCREEN,URINE NEGATIVE (NEGATIVE); PHENCYCLIDINE SCREEN,URINE NEGATIVE (NEGATIVE)
--- NOTE | 2020-08-28 20:10 | Diagnostic Imaging Report ---
EXAM: CT Abdomen and Pelvis WITH contrast INDICATION: ^Abd pain ^[id number] ^[id number] COMPARISON: Abdominal radiograph 04/01/2019, gallbladder ultrasound performed earlier on the same day (08/28/2020) TECHNIQUE: Abdomen and pelvis were scanned utilizing a multidetector helical scanner from the lung base to the pubic symphysis after administration of IV contrast. Coronal and sagittal reformations were obtained. Routine protocol was performed. Scan was performed when during portal venous phase. IV CONTRAST: 100 mL of Isovue 370 ORAL CONTRAST: None COMPLICATIONS: None RADIATION DOSE: Total DLP: 233.85 mGy*cm Estimated effective dose: (DLP x 0.015 x size factor) mSv CTDIvol has been reviewed. It is below the limits set by the Radiation Protocol Committee (RPC). Dose modulation, iterative reconstruction, and/or weight based adjustment of the mA/kV was utilized to reduce the radiation dose to as low as reasonably achievable. FINDINGS: LINES and TUBES: None. LOWER THORAX: Subsegmental atelectasis in the dependent lung bases. Visualized inferior mediastinum is unremarkable. HEPATOBILIARY: Diffuse hepatic attenuation, suggestive of steatosis. No focal hepatic lesions. No biliary ductal dilation. GALLBLADDER: No radio-opaque stones or sludge. No wall thickening. SPLEEN: No splenomegaly. PANCREAS: No focal masses or ductal dilatation. ADRENALS: No adrenal nodules KIDNEYS/URETERS: Kidneys enhance symmetrically. No hydronephrosis. No cystic or solid mass lesions. No stones. GI TRACT: Few dilated small bowel loops measuring up to 4.3 cm in diameter with few air-fluid levels. Associated small bowel transition point at the mid abdomen (series 2 image 54, series 301 image 29). Focal hyperdensity measures 1.2 cm within dilated small bowel loop, likely represents ingested pill. The colon is diffusely decompressed. Appendix is normal. PELVIC ORGANS/BLADDER: Prostate and seminal vesicles are unremarkable. Urinary bladder is unremarkable. LYMPH NODES: No lymphadenopathy. VESSELS: Unremarkable. PERITONEUM / RETROPERITONEUM: Trace fluid in the lower abdomen/pelvis, likely reactive. Mild stranding throughout the mesentery, likely represents reactive changes. No free air BONES: No acute osseous abnormality. Mild multilevel degenerative disc changes of the lumbar spine. SOFT TISSUES: Unremarkable. IMPRESSION: 1. Dilated small bowel loops with few air-fluid levels and associated transition point at the mid abdomen, concerning for bowel obstruction. No free air to suggest perforation. Recommend surgical consultation. 2. Trace fluid in the lower abdomen and pelvis, favored to be reactive. 3. Hepatic steatosis. Findings discussed with ER physician, Dr. Holcomb, on 08/28/2020 at 2005. Signed by: Dr. Amado Dillon M.D. on 08/28/2020 8:07 PM
[2020-08-28] MEDS ORDERED: MORPHINE SULFATE INJ 4 MG/ML INJ 1ML ONE (20:21)
[2020-08-28] MEDS: ONDANSETRON HCL INJ 2MG/ML 2ML 2 MG/ML VIAL IV PRN (20:25)
[2020-08-28] MEDS: SODIUM CHLORIDE 0.9% 1000ML 1,000 ML IV SCH (20:25)
[2020-08-28] MEDS: MORPHINE SULFATE INJ 4 MG/ML INJ 1ML IV PRN (20:25)
--- OUTSIDE RECORDS SUMMARY | 2020-08-28 20:32 | XMS REPORT | Continuity of Care Document ---
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 Name Role Phone NO, PCP PCP Unavailable Alphonso Solis Attphys Unavailable Caleb MOORE Attphys Unavailable YO YI Admphys Unavailable Caleb MOORE Admphys Unavailable Payers Payer Name Policy Type Policy Number Effective Date Expiration Date Caleb cat [employer] Pos [id number] [facility] Problems Condition Name Condition Details Condition Category Status Onset Date Resolution Date Last Treatment Date Treating Clinician Comments Source Small bowel obstruction SBO (small bowel obstruction) Problem Active [facility] Allergies, Adverse Reactions, Alerts Allergy Name Allergy Type Status Severity Reaction(s) Onset Date Inacti ve Date Treating Clinician Comments Source aspirin DA Active [place] 2020-02-24 00:00:00 [facility] ibuprofen DA Active U 2020-02-24 00:00:00 [facility] Aspirin Allergy to Substance Active "I SWELL UP" 2019-03-29 00:00: 00 [facility] No Known Allergies DA Active U 2014-10-08 00:00:00 [facility] Medications This patient has no known medications. Procedures Procedure Date / Time Performed Performing Clinician Deborah e Computed tomography of abdomen and pelvis with contrast 2018 00:00:00 CHRISTOFER HAYES [facility] Encounters Start Date/Time End Date/Time Encounter Type Admission Type Attendi [facility] Care Department Encounter ID Source 2019-03-30 10:34:00 2019-04-02 11:27:00 Discharged Inpatient 1 CHELI MOORE [facility] [id number] [facility] Results Test Description Test Time Test Comments Results Result Comments Source CT ABDOMEN/PELVIS W 2020-08-28 19:47:00 [facility] : 1970 Sex: M [facility] [address] [address] Patient Name: RAMIN EPPS MR #: [id number] : 1970 Age/Sex: 50/M Req #: [id number] Adm Physician: Ordered by: Eddy Solis MD Report #: [id number] Location: ER Room/Bed: Procedure: [id number] CT/CT ABDOMEN/PELVIS W Exam Date: 08/28/20 Exam Time: 1814 REPORT STATUS: Signed EXAM: CT Abdomen and Pelvis WITH contrast INDICATION: Abd pain 20200828 COMPARISON: Abdominal radiograph 04/01/2019, gallbladder ultrasound performed earlier on the same day (08/28/2020) TECHNIQUE: Abdomen and pelvis were scanned utilizing a multidetector helical scanner from the lung base to the pubic symphysis after administration of IV contrast. Coronal and sagittal reformations were obtained. Routine protocol was performed. Scan was performed when during portal venous phase. IV CONTRAST: 100 mL of Isovue 370 ORAL CONTRAST: None COMPLICATIONS: None RADIATION DOSE: Total DLP: 233.85 mGy*cm Estimated effective dose: (DLP x 0.015 x size factor) mSv CTDIvol has been reviewed. It is below the limits set by the Radiation Protocol Committee (RPC). Dose modulation, iterative reconstruction, and/or weight based adjustment of the mA/kV was utilized to reduce the radiation dose to as low as reasonably achievable. FINDINGS: LINES and TUBES: None. LOWER THORAX: Subsegmental atelectasis in the dependent lung bases. Visualized inferior mediastinum is unremarkable. HEPATOBILIARY: Diffuse hepatic attenuation, suggestive of steatosis. No focal hepatic lesions. No biliary ductal dilation. GALLBLADDER: No radio-opaque stones or sludge. No wall thickening. SPLEEN: No splenomegaly. PANCREAS: No focal masses or ductal dilatation. ADRENALS: No adrenal nodules KIDNEYS/URETERS: Kidneys enhance symmetrically. No hydronephrosis. No cystic or solid mass lesions. No stones. GI TRACT: Few dilated small bowel loops measuring up to 4.3 cm in diameter with few air- fluid levels. Associated small bowel transition point at the mid abdomen (series 2 image 54, series 301 image 29). Focal hyperdensity measures 1.2 cm within dilated small bowel loop, likely represents ingested pill. The colon is diffusely decompressed. Appendix is normal. PELVIC ORGANS/BLADDER: Prostate and seminal vesicles are unremarkable. Urinary bladder is unremarkable. LYMPH NODES: No lymphadenopathy. VESSELS: Unremarkable. PERITONEUM / RETROPERITONEUM: Trace fluid in the lower abdomen/pelvis, likely reactive. Mild stranding throughout the mesentery, likely represents reactive changes. No free air BONES: No acute osseous abnormality. Mild multilevel degenerative disc changes of the lumbar spine. SOFT TISSUES: Unremarkable. IMPRESSION: 1. Dilated small bowel loops with few air-fluid levels and associated transition point at the mid abdomen, mayra rning for bowel obstruction. No free air to suggest perforation. Recommend surgical consultation. 2. Trace fluid in the lower abdomen and pelvis, favored to be reactive. 3. Hepatic steatosis. Findings discussed with ER physician, Dr. Holcomb, on 08/28/2020 at 2005. Signed by: Dr. Mirlande Dillon M.D. on 08/28/2020 8:07 PM Dictated By: MIRLANDE DILLON MD 06 Transcribed By: CASSY on 08/28/202006 COPY TO: EDDY SOLIS MD GALLBLADDER 2020-08-28 17:37:00 [facility] 1970 Sex: [place] [address] Patient Name: RAMIN EPPS MR #: [id number] : 1970 Age/Sex: 50/M Req #: [id number] Adm Physician: Ordered by: Eddy Solis MD Report #: [id number] Location: ER Room/Bed: Procedure: [id number] US/US GALLBLADDER Exam Date: 08/28/20 Exam Time: 1701 REPORT STATUS: Signed EXAM: Gallbladder Ultrasound IND ICATION: epigastric pain COMPARISON: CT abdomen/pelvis 03/29/2019 TECHNIQUE: Transverse and longitudinal images of the gallbladder were obtained. FINDINGS: Liver: Mildly enlarged liver with right hepatic lobe measuring up to 17.1 cm. No visualized focal sonographic lesions. Gallbladder: Stones/Sludge: None Wall: 0.2 cm Appearance: No wall thickening, pericholecystic fluid or hydrops. Sonographic Pandya's Sign: Negative Bile Ducts: Intrahepatic Ducts: No dilatation Extrahepatic Ducts: Common bile duct measures 0.3 cm, no d ilatation Visualized portions of the right kidney are unremarkable. Right kidney measures up to 11 cm in length. Visualized portions of the pancreas are sonographically unremarkable. Free Fluid: No ascites or pleural effusion IMPRESSION: 1. No acute sonographic abnormalities visualized in the right upper abdominal quadrant. 2. Mild hepatomegaly. Signed by: Dr. Mirlande Dillon M.D. on 08/28/2020 5:42 PM Dictated By: MIRLANDE DILLON MD 41 Transcribed By: CASSY on 08/28/201741 COPY TO: EDDY SOLIS MD CHEST SINGLE (PORTABLE) 2020-08-28 16:43:00 [facility] 1970 Sex: M [id number] [address] Patient Name: RAMIN EPPS MR #: [id number] : 1970 Age/Sex: 50/M Req #: [id number] Adm Physician: Ordered by: Eddy Solis MD Report #: [id number] Location: Room/Bed: Procedure: [id number] DX/CHEST SINGLE (PORTABLE) Exam Date: 08/28/20 Exam Time: 1620 REPORT STATUS: Signed TECHNIQUE: Frontal view of the chest. INDICATION: Epigastric pain 20200828 COMPARISON: 04/01/2020 DISCUSSION: Limited evaluation due to portable technique. Lines and hardware: Overlying EKG leads are noted. Heart and mediastinum: Within normal limits. Lungs and pleura: No focal airspace consolidation. No pleural effusion. No pneumothorax. Soft tissues and bones: No acute abnormal ity. IMPRESSION: Negative for acute intrathoracic process. Signed by: Blanca Heath MD on 08/28/2020 4:43 PM Dictated By: BLANCA HEATH MD 42 Transcribed By: CASSY on 08/28/201642 COPY TO: EDDY SOLIS MD - XR ABDOMEN AP 1 V 2020-02-26 08:27:00 FAX: Kenya Lyle [phone] [place]: B St: [facility] FAX: David Lewis MD Name: RAMIN EPPS [facility] : 1970 Age/S: 49/M [address] [facility] Unit #: [id number] Loc: V[address] [place] [address] Phys: Kenya Mednosa MD Acct: [id number] Dis Date: Status: ADM IN PHONE #: [phone] Exam Date: 02/26/2020 0804 FAX #: [phone] Reason: followup on SBO EXAMS: CPT CODE: [id number] XR ABDOMEN AP 1 V 07451 HISTORY: Small bowel obstruction, abdominal pain TECHNIQUE: AP abdomen x- ray COMPARISON: Previous day FINDINGS: Resolved gas-distended small bowel loops within the mid left abdomen. Bowel gas observed throughout the colon. No intra-abdominal mass effect. Left pelvic phleboliths. Degenerative changes of the spine and hips. IMPRESSION: Resolved gas-distended small bowel loops within the mid left abdomen. LOCATION: [facility] at 08 Reported and signed by: Lisa Neal D.O. CC: Kenya Mendosa MD; David Lewis MD Technologist: LONDON NICOLAS JR Trnmerd Date/Time/By: 02/26/2020 (826) : By: [email or web address] Orig Print D/T: S: 02/26/2020 (0890) PAGE 1 Signed Report - XR ABDOMEN AP 1 V 2020-02-25 09:51:00 FAX: Kenya Lyle [phone] [place]: St: ADM FAX: Luiisto Meehan MD [phone] Name: RAMIN EPPS [facility] : 1970 Age/S: 49/M [address] [facility] Unit #: [id number] Loc: [address] [place] [address] Phys: Luisito Norman MD Acct: [id number] Dis Date: Status: ADM IN PHONE #: [phone] Exam Date: 02/25/2020924 FAX #: [phone] Reason: sbo EXAMS: CPT CODE: [id number] XR ABDOMEN AP 1 V 44049 HISTORY: sbo TECHNIQUE: AP abdomen x-ray COMPARISON: None FINDINGS: Nonobstructive bowel gas pattern. No significant stool burden. No intra-abdominal mass effect. No abnormal calcifications are observed. Visualized osseous structures are intact. IMPRESSION: No radiographic evidence of acute intra-abdominal process. Location: [facility] at 0951 Reported and signed by: Art Cummins MD CC: Kenya Mendosa MD; Luisito Norman MD Technologist: Sonal Smith RT(R) Trnscrd Date/Time/By: 02/25/2020 (950) : By: [email or web address] Orig Print D/T: S: 02/25/2020 (7841) PAGE 1 Signed Report BASIC METABOLIC PANEL [...] CA) 9.0 mg/dL 8.5-10.1 N BASIC METABOLIC FBMVZ1918-48-66 04:55:00* Test Item Value Reference Range Interpretation [...] CA) 9.0 mg/dL 8.5-10.1 N CBC W/AUTO NVUQ2338-22-18 04:45:00* Test Item Value Reference Range Interpretation [...] = MDIFF) NO - CT ABD PELVIS W/SAUM3418-18-21 10:40:00 [facility] 1970 Age/S: 49 / M [address] [facility] [address] Unit #: [id number] Loc: [address] Phys: Nicolas Tavares MD [place], [place] [address] Acct: [id number] Dis Date: Status: REG ER PHONE #: Exam Date: 02/24/2020 6176 FAX #: Reason: diffuse abd pain, blood in stool EXAMS: CPT CODE: [id number] CT ABD PELVIS W/CONT 95202 HISTORY: diffuse abd pain, blood in stool [...] 1 Signed Report (CONTINUED) Name: RAMIN EPPS [facility] : 1970 Age/S: 49 / M [address] [facility] [address] Unit #: [id number] Loc: [address] Ph ys: Nicolas Tavares MD [place], [place] [address] Acct: [id number] Dis Date: Status: REG ER PHONE #: Exam Date: 02/24/2020 9132 FAX #: Reason: diffuse abd pain, blood in stool EXAMS: CPT CODE: [id number] CT ABD PELVIS W/CONT 28858 <Continued> at 1040 Reported and signed by: Lisa Neal D.O. CC: Nicolas Tavares MD Technol ogist:Dylon Bonner RT(R),CT CTDI: DLP: Trnscb Date/Time: 02/24/2020 (1040) [email or web address] PAGE 2 Signed Report BASIC METABOLIC HOBUN1737-37-55 09:55:00* Test Item Value Reference Range Interpretation [...] CA) 9.9 mg/dL 8.0-10.5 N HEPATIC FUNCTION QIBTX6372-33-96 09:55:00* Test Item Value Reference Range Interpretation [...] code = ALKP) 73 U/L 50-139 N AWKTJH5162-84-02 09:55:00* Test Item Value Reference Range Interpretation Comments LIPASE (test code = LIP) 124 Unit/L 144-286 L BASIC METABOLIC WWWHD9843-43-47 09:50:00* Test Item Value Reference Range Interpretation [...] CA) 9.9 mg/dL 8.0-10.5 N HEPATIC FUNCTION FHAMQ3316-33-02 09:50:00* Test Item Value Reference Range Interpretation [...] TOTAL (test code = ALKP) IUnit/L 45-117 RTKUBG4648-72-77 09:50:00* Test Item Value Reference Range Interpretation Comments LIPASE (test code = LIP) U/L 73.0-393.0 URINALYSIS GGJWETCZ9333-53-89 09:40:00* Test Item Value Reference Range Interpretation [...] per HPF NONE Urine Source? Clean CatchPROTHROMBIN BOVE6051-36-54 09:38:00* Test Item Value Reference Range Interpretation [...] valves (2.5-3.5) IS PATIENT ON ANTICOAGULANTS? NURINALYSIS MZRPZKRH5832-60-22 09:32:00* Test Item Value Reference Range Interpretation [...] HPF NONE Urine Source? Clean CatchCBC W/O [id number] 09:24:00* Test Item Value Reference Range Interpretation [...] MPV) 9.2 fL 6.7-11.0 N Comprehensive Metabolic Aisfb5829-92-46 02:31:02* Test Item Value Reference Range Interpretation [...] A/G Ratio) 1.5 ratio N Comprehensive Metabolic Sbfbj0197-46-39 02:31:02* Test Item Value Reference Range Interpretation [...] is not provided, and the patient is -Japanese, multiply by 1.212. If sex is not [...] by the National Kidney Foundation, http://nkdep.nih.gov Lipase Aavkb2657-91-88 02:31:02* Test Item Value Reference Range Interpretation Comments Lipase Level (test code = Lipase Level) 15 U/L 13-60 Comprehensive Metabolic Ehwgd1376-06-11 02:31:02* Test Item Value Reference Range Interpretation [...] is not provided, and the patient is -Japanese, multiply by 1.212. If sex is not [...] is not provided, and the patient is -Japanese, multiply by 1.212. If sex is not [...] by the National Kidney Foundation, http://nkdep.nih.gov Automated Xbklkmktopyn9393-38-51 02:22:39* Test Item Value Reference Range Interpretation Comments Neutro Auto (test code = Neutro Auto) 57.1 % 36.0-70.0 Lymph Auto (test code = Lymph Auto) 33.7 % 12.0-44.0 Bowie Auto (test code = Bowie Auto) 6.9 % 0.0-11.0 Eos, Auto (test code = Eos, Auto) 1.7 % 0.0-7.0 Basophil Auto (test code = Basophil Auto) 0.5 % 0.0-2.0 Neutro Absolute (test code = Neutro Absolute) 4.4 x10 1.6-7.4 Lymph Absolute (test code = Lymph Absolute) 2.60 x10 .50-4.60 Bowie Absolute (test code = Bowie Absolute) .53 x10 .00-1.20 Eos Absolute (test code = Eos Absolute) 0.13 x10 0.00-0.74 Baso Absolute (test code = Baso Absolute) 0.04 x10 0.00-0.21 IG Ouqee9418-42-26 02:22:39* Test Item Value Reference Range Interpretation Comments IG (test code = IG) 0.1 % 0.0-5.0 IG Abs (test code = IG Abs) 0 x10 N Complete Blood Count with Eiiqgmourcef6818-63-03 02:22:38* Test Item Value Reference Range Interpretation [...] code = IPF) 0 % N Bedside Ajoixed0394-69-38 21:30:00* Test Item Value Reference Range Interpretation Comments Bedside Glucose (test code = 76298-2) 118 70-120 Meter ID: [id number] [facility] 2019-04-01 06:32:00 [facility] [address] [place] [address] Patient Name: RAMIN EPPS MR #: [id number] : 1970 Age/Sex: 48/M Req #: [id number] Adm Physician: CHELI MOORE MD Ordered by: CHELI MOORE MD Report #: [id number] Location: MED/SURG Room/Bed: 1041 Procedure: DX/ABDOMEN 2 VIEW Exam Date: 04/01/19 Exam T nia: 0615 REPORT STATUS: Signed Exam: Abdominal film Clinical History: Small bowel obstruction Com parison: KUClive 03/31/2019 DISCUSSION: Frontal view of the abdomen [...] M.D. on 04/01/2019 6:34 AM Dictated By: Lucretia GUSTAFSON MD 3 Transcribed By: CASSY on 04/01/19633 COPY TO: CHELI MOORE MD ABDOMEN 2 JWHB4417-94-12 08:10:00 [address] [place] [address] Patient Name: RAMIN EPPS MR #: [id number] : 1970 Age/Sex: 48/M Req #: [id number] Adm Physician: CHELI MOORE MD Ordered by: CHELI MOORE MD Report #: [id number] Location: MED/SURG Room/Bed: 104-1 Procedure: DX/ABDOMEN 2 VIEW Exam Date: 03/31/19 [...] 03/31/19817 COPY TO: CHELI MOORE MD Sodium Aqupi1266-72-68 06:04:00* Test Item Value Reference Range Interpretation Comments Sodium Level (test code = 2951-2) 138 136-145 [facility]assium Zeqxz4586-35-33 06:04:00* Test Item Value Reference Range Interpretation Comments Potassium Level (test code = 2823-3) 3.9 3.5-5.1 [facility] WorthChloride Usiql9696-27-01 06:04:00* Test Item Value Reference Range Interpretation Comments Chloride Level (test code = 2075-0) 109 98-107 H [facility] WorthCarbon Dioxide Nripu5187-98-07 06:04:00* Test Item Value Reference Range Interpretation Comments Carbon Dioxide Level (test code = 2028-9) 23 22-29 [facility] WorthAnion Uao5473-35-46 06:04:00* Test Item Value Reference Range Interpretation Comments Anion Gap (test code = 79797-9) 9.9 8-16 [facility] WorthBlood Urea Ultmroin1649-78-26 06:04:00* Test Item Value Reference Range Interpretation Comments Blood Urea Nitrogen (test code = 3094-0) 12 7- [facility] WorthCreatinine2019-05-18 06:04:00* Test Item Value Reference Range Interpretation Comments Creatinine (test code = 2160-0) 0.78 0.72-1.25 [facility] WorthBUN/Creatinine Qqxry5161-14-30 06:04:00* Test Item Value Reference Range Interpretation Comments BUN/Creatinine Ratio (test code = 3097-3) 15 05-08 [facility] WorthEstimat Glomerular Filtration Rate 2019-03-31 06:04:00* Test Item Value Reference Range Interpretation Comments Estimat Glomerular Filtration Rate (test code = 520575455) > 60 >60 Ranges were taken from the National Kidney Disease Education Program and the [facility] Kidney Foundation literature.Reference ranges:60 or greater: Mzuwdw91-07 ( for 3 consecutive months): Chronic kidney disease 15 or less: Kidney failureBaylor Scott & [facility] WorthGlucose Lyjgf5401-81-70 06:04:00* Test Item Value Reference Range Interpretation Comments Glucose Level (test code = AKN2310) 86 74-118 [facility] WorthCalcium Qilip5188-18-12 06:04:00* Test Item Value Reference Range Interpretation Comments Calcium Level (test code = 04027-8) 9.3 8.4-10.2 [facility] WorthWhite Blood Hmhyn5680-61-79 05:43:00* Test Item Value Reference Range Interpretation Comments White Blood Count (test code = 6690-2) 7.27 4.8-10.8 [facility] WorthRed Blood Squpw1675-69-62 05:43:00* Test Item Value Reference Range Interpretation Comments Red Blood Count (test code = 789-8) 3.70 4.3-5.7 L [facility] WorthHemoglobin2019-05-18 05:43:00* Test Item Value Reference Range Interpretation Comments Hemoglobin (test code = 42788-1) 12.0 14.0-18.0 L [facility] WorthHematocrit2019-05-18 05:43:00* Test Item Value Reference Range Interpretation Comments Hematocrit (test code = 4544-3) 35.8 38.2-49.6 L [facility] WorthMean Corpuscular Xdanij5205-16-70 05:43:00* Test Item Value Reference Range Interpretation Comments Mean Corpuscular Volume (test code = 787-2) 96.8 81-99 [facility] WorthMean Corpuscular Etqhsnsecf6077-50-87 05:43:00* Test Item Value Reference Range Interpretation Comments Mean Corpuscular Hemoglobin (test code = 785-6) 32.4 28-32 H [facility] WorthMean Corpuscular Hemoglobin Concent 2019-03-31 05:43:00* Test Item Value Reference Range Interpretation Comments Mean Corpuscular Hemoglobin Concent (test code = 786-4) 33.5 31-35 [facility] WorthRed Cell Distribution Rkaor5992-80-46 05:43:00* Test Item Value Reference Range Interpretation Comments Red Cell Distribution Width (test code = 11217-8) 12.5 11.7 -14.4 [facility] WorthPlatelet Hbbrk3791-07-73 05:43:00* Test Item Value Reference Range Interpretation Comments Platelet Count (test code = 777-3) 175 140-360 [facility] WorthNeutrophils (%) (Auto)2019-03-31 05:43:00 * Test Item Value Reference Range Interpretation Comments Neutrophils (%) (Auto) (test code = 66507-0) 60.7 38.7-80.0 [facility] WorthLymphocytes (%) (Auto)2019-03-31 05:43:00 * Test Item Value Reference Range Interpretation Comments Lymphocytes (%) (Auto) (test code = 736-9) 29.7 18.0-39.1 [facility] WorthMonocytes (%) (Auto)2019-03-31 05:43:00* Test Item Value Reference Range Interpretation Comments Monocytes (%) (Auto) (test code = 5905-5) 7.7 4.4-11.3 [facility] WorthEosinophils (%) (Auto)2019-03-31 05:43:00 * Test Item Value Reference Range Interpretation Comments Eosinophils (%) (Auto) (test code = 713-8) 1.2 0.0-6.0 [facility] WorthBasophils (%) (Auto)2019-03-31 05:43:00* Test Item Value Reference Range Interpretation Comments Basophils (%) (Auto) (test code = 706-2) 0.4 0.0-1.0 [facility] WorthIM GRANULOCYTES %2019-03-31 05:43:00* Test Item Value Reference Range Interpretation Comments IM GRANULOCYTES % (test code = IM GRANULOCYTES %) 0.3 0.0- 1.0 [facility] WorthNeutrophils # (Auto)2019-03-31 05:43:00* Test Item Value Reference Range Interpretation Comments Neutrophils # (Auto) (test code = 751-8) 4.4 2.1-6.9 [facility] WorthLymphocytes # (Auto)2019-03-31 05:43:00* Test Item Value Reference Range Interpretation Comments Lymphocytes # (Auto) (test code = 57112-8) 2.2 1.0-3.2 [facility] WorthMonocytes # (Auto)2019-03-31 05:43:00* Test Item Value Reference Range Interpretation Comments Monocytes # (Auto) (test code = 742-7) 0.6 0.2-0.8 [facility] WorthEosinophils # (Auto)2019-03-31 05:43:00* Test Item Value Reference Range Interpretation Comments Eosinophils # (Auto) (test code = 711-2) 0.1 0.0-0.4 [facility] WorthBasophils # (Auto)2019-03-31 05:43:00* Test Item Value Reference Range Interpretation Comments Basophils # (Auto) (test code = 704-7) 0.0 0.0-0.1 [facility] WorthAbsolute Immature Granulocyte (auto 2019-03-31 05:43:00* Test Item Value Reference Range Interpretation Comments Absolute Immature Granulocyte (auto (bety t code = Absolute Immature Granulocyte (auto) 0.02 0-0.1 [facility] WorthABDOMEN-1VIEW (KUB)2019-03-30 06:25:00 [facility] [address] [address] Patient Name: RAMIN EPPS MR #: [id number] : 1970 Age/Sex: 48/M Req #: [id number] Adm Physician: CHELI MOORE MD Ordered by: CHELI MOORE MD Report #: [id number] Location: [facility] Room/Bed: [place] [address] Procedure: DX/ABDOMEN-1VIEW (KUB) Exam Date: 03/30/19 E [...] M.D. on 03/30/2019 6:28 AM Dictated By: Lucretia GUSTAFSON MD 7 Transcribed By: CASSY on 03/30/19627 COPY TO: CHELI MOORE MD Phosphorus Hzfqz4922-52-33 06:17:00* Test Item Value Reference Range Interpretation Comments Phosphorus Level (test code = NNM1705) 2.8 2.3-4.7 [facility] WorthMagnesium Mfcug4792-86-14 06:17:00* Test Item Value Reference Range Interpretation Comments Magnesium Level (test code = 14134-4) 2.1 1.3-2.1 [facility] WorthTotal Gvukmqyos3388-76-65 06:17:00* Test Item Value Reference Range Interpretation Comments Total Bilirubin (test code = 1975-2) 1.0 0.2-1.2 [facility] Fort WorthAspartate Amino Transf (AST/SGOT) 2019-03-30 06:17:00* Test Item Value Reference Range Interpretation Comments Aspartate Amino Transf (AST/SGOT) (test code = Aspartate Amino Transf (AST/SGOT)) 23 5-34 [facility] WorthAlanine Aminotransferase (ALT/SGPT) 2019-03-30 06:17:00* Test Item Value Reference Range Interpretation Comments Alanine Aminotransferase (ALT/SGPT) (test code = 1742-6) 22 0-55 [facility] Fort WorthTotal [id number] 06:17:00* Test Item Value Reference Range Interpretation Comments Total Protein (test code = 2885-2) 6.4 6.5-8.1 L [facility] WorthAlbumin2019-05-17 06:17:00* Test Item Value Reference Range Interpretation Comments Albumin (test code = 1751-7) 3.5 3.5-5.0 [facility] WorthGlobulin2019-05-17 06:17:00* Test Item Value Reference Range Interpretation Comments Globulin (test code = 10842-1) 2.9 2.3-3.5 [facility] WorthAlbum[facility]/Globulin [id number] 06:17:00 * Test Item Value Reference Range Interpretation Comments Albumin/Globulin Ratio (test code = 1759-0) 1.2 0.8-2.0 [facility] WorthAlkaline Kjfrekxbzss0591-92-60 06:17:00* Test Item Value Reference Range Interpretation Comments Alkaline Phosphatase (test code = 6768-6) 59 40-150 [facility] WorthAB[facility] (KUB)2019-03-29 22:49:00 [facility] [address] [address] Patient Name: RAMIN EPPS MR #: [id number] : 1970 Age/Sex: 48/M Req #: [id number] Adm Physician: CHELI MOORE MD Ordered by: CHELI MOROE MD Report #: [id number] Location: [facility] Room/Bed: [place] [address] Procedure: DX/ABDOMEN-1VIEW (KUB) Exam Date: 03/29/19 E [...] MD on 03/29/192250 Transcribed By: CASSY on 03/29/192250 COPY TO: CHELI MOORE MD CT ABDOMEN/PELVIS W 2019-03-29 20:16:00 [address] [place] [address] Patient Name: RAMIN EPPS MR #: [id number] : 1970 Age/Sex: 48/M Req #: [id number] Adm Physician: CHELI MOORE MD Ordered by: CHRISTOFER HAYES [employer]ING SUPERVISOR Report #: [id number] Location: [facility] Room/Bed: [place] [address] Procedure: [id number] CT/CT ABDOMEN/PELVIS W Exam Date: 03/29/19 Exam [...] a high-grade small bowel obstruction. Signed by: Cristi StevensO Mercedes, M.M.M. on 03/29/2019 8:25 PM Dictated By: ADEEL NIXON DO Electronicall y Signed By: ADEEL NIXON DO on 03/29/192024 Transcribed By: CASSY on 2024 COPY TO: CHRISTOFER HAYES NP ABDOMEN ACUTE SERIES W/ERIC [id number] 18:08:00 [address] [place] [address] Patient Name: RAMIN EPPS MR #: [id number] : 1970 Age/Sex: 48/M Req #: [id number] Adm Physician: Ordered by: CHRISTOFER HAYES NP Report #: [id number] Location: ER Room/Bed: Procedure: DX/ABDOMEN ACUTE SERIES W/PA CXR Exam Date: 03/29/19 Exam Time: 1745 REPORT STA TUS: Signed RADIOGRAPH(S) OF THE [...] 2. N o free air. Signed by: Dr. Adeel Nixon DMercedesOMercedes, M.M.M. on 03/29/2019 6:11 PM Dictated By: ADEEL NIXON DO 10 COPY TO: Sascha HAYES NP Stool Occult [id number] 17:37:00* Test Item Value Reference Range Interpretation Comments Stool Occult Blood (test code = 2335-8) NEGATIVE NEGATIVE [facility] WorthAmylase Dpxoh7130-09-39 16:08:00* Test Item Value Reference Range Interpretation Comments Amylase Level (test code = 1798-8) 68 25-125 [facility] WorthLipase2019-05-16 16:08:00* Test Item Value Reference Range Interpretation Comments Lipase (test code = 3040-3) 20 8-78 [facility] WorthProthrombin [id number] 15:52:00* Test Item Value Reference Range Interpretation Comments Prothrombin Time (test code = 5902-2) 12.6 11.9-14.5 [facility] WorthProthromb Time International Ratio 2019-03-29 15:52:00* Test Item Value Reference Range Interpretation Comments Prothromb Time International Ratio (test code = 6301-6) 0.90 Oral Anticoagulant Therapy INR Values:1. Low Intensity Therapy 1.5 - 2.02 . Moderate Intensity Therapy 2.0 - 3.03. High Intensity Therapy(1) 2.5 - 3. 54. High Intensity Therapy(2) 3.0 - 4.05. Panic Value INR > 5.0 [facility] WorthActivated Partial Thromboplast Time 2019-03-29 15:52:00* Test Item Value Reference Range Interpretation Comments Activated Partial Thromboplast Time (test code = 65273-3) 29.0 23.8-35.5 [facility] WorthUrine Opiates [id number] 14:25:00* Test Item Value Reference Range Interpretation Comments Urine Opiates Screen (test code = 84704-9) NEGATIVE NEGATIVE ALL TESTS PERFORMED MANUALLY ON [employer] TOX/SEE TESTB[facility] Fort WorthUrine Barbiturates [id number] 14:25:00* Test Item Value Reference Range Interpretation Comments Urine Barbiturates Screen (test code = 237155298) NEGATIVE NEGA TIVE [facility] WorthUrine Phencyclidine Hzvacs2906-16-75 14:25:00* Test Item Value Reference Range Interpretation Comments Urine Phencyclidine Screen (test code = 96896-9) NEGATIVE NEGAT SHAHIDA [facility] WorthUrine Amphetamines Qtpoyi7029-68-72 14:25:00* Test Item Value Reference Range Interpretation Comments Urine Amphetamines Screen (test code = 77643-1) NEGATIVE NEGATI VE [facility] WorthUrine Methamphetamines Zwppdx4304-17-96 14:25:00* Test Item Value Reference Range Interpretation Comments Urine Methamphetamines Screen (test code = Urine Metha mphetamines Screen) NEGATIVE NEGATIVE [facility] WorthUrine Benzodiazepines Xrllxp7521-26-07 14:25:00* Test Item Value Reference Range Interpretation Comments Urine Benzodiazepines Screen (test code = 44923-0) NEGATIVE NEG ATIVE [facility] WorthUrine Cocaine [id number] 14:25:00* Test Item Value Reference Range Interpretation Comments Urine Cocaine Screen (test code = 3398-5) NEGATIVE NEGATIVE [facility] WorthUrine Cannabinoids Mkvehz1643-17-63 14:25:00* Test Item Value Reference Range Interpretation Comments Urine Cannabinoids Screen (test code = 35517-6) NEGATIVE NEGATI VE THESE RESULTS ARE FOR MEDICAL TREATMENT ONLYTHIS REPORT CONTAINS UNCONFIR MED SCREENING RESULTS*POSITIVE RESULTS WILL BE CONFIRMED BY REFERENCE LAB UPON R EQUEST CUT-OFFDRUG CLASS CONCENTRATION ng/mLAmphetamines 1000Methamphetamines 1000Cocaine 300Opiate 300Phencyc lidine 25Cannabinoid 50Barbiturates 300Benzodiazepine 300Methadone 300[facility] WorthUrine Methadone Nplccs5634-52-24 14:25:00* Test Item Value Reference Range Interpretation Comments Urine Methadone Screen (test code = 43654-2) NEGATIVE NEGATIVE THESE RESULTS ARE FOR MEDICAL TREATMENT ONLYTHIS REPORT CONTAINS UNCONFIR MED SCREENING RESULTS*POSITIVE RESULTS WILL BE CONFIRMED BY REFERENCE LAB UPON R EQUEST CUT-OFFDRUG CLASS CONCENTRATION ng/mLAmphetamines 1000Methamphetamines 1000Cocaine Metabolite 300Opiate 300Phencyc lidine 25Cannabinoid 50Barbiturates 300Benzodiazepine 300Methadone 300[facility] WorthXR Chest 1 View Enccmdw5730-83-64 12:39:57Patient: RAMIN EPPS Date/Time04/30/2018 11:18 CDTReason for ExamShortness of breathReportXR Chest 1 View FrontalLOCATION: [id number]: Shortness of breathCOMPARISON: 05/22/10FIND INGS:The cardiomediastinal silhouette is unremarkable. There is no focal consol idation. There is no pleural effusion or pneumothorax.IMPRESSION:No acute cardi opulmonary disease. Final Dictated by: MD Brown Daisha ADictated DT/TM: 04/30/2018 12:39 pmSigned by: MD Brown Daisha ASigned (Electronic Si gnature): 04/30/2018 12:39 pmCT Abdomen and Pelvis w/ Apsmjlga4239-59-78 03:09:20Patient: RAMIN EPPS Date/Time04/30/2018 02:58 CDTReason for [...]
[2020-08-28] MEDS ORDERED: BENZOCAINE/TETRACAINE/BUTAMBEN AERO SPRAY 56 GM CAN ONE (20:41)
[2020-08-28 21:15] VITALS: BP 137/78
[2020-08-28] MEDS ORDERED: METOPROLOL TARTRATE INJ 1 MG/ML VIAL IV PRN (21:30)
--- NOTE | 2020-08-28 21:41 | Diagnostic Imaging Report ---
EXAM: Abdomen 1 View INDICATION: ^ng tube placement ^[id number] ^2044 COMPARISON: Same day CT of the abdomen/pelvis. IMPRESSION: Dedicated x-ray to confirm nasogastric tube placement. Subdiaphragmatic nasogastric tube is visualized with tip and side-port projecting over gastric body. Contrast excretion into the renal collecting system and ureters from prior CT. Lung bases are clear. No osseous abnormality. Paucity of bowel gas. Signed by: Dr. Estevan Askew MD on 08/28/2020 9:37 PM
[2020-08-28] MEDS ORDERED: SODIUM CHLORIDE 0.9% 50ML 50 ML ONE (22:37)
[2020-08-28] MEDS ORDERED: IOPAMIDOL 370 MG/ML 200 ML INFUS..BTL INJ ONE (22:37)
[2020-08-28] MEDS: SODIUM CHLORIDE 0.9% 250ML IRRIG IR SCH (22:46)
[2020-08-29] VITALS (7 sets, daily range): BP systolic 146–159; BP diastolic 83–100
[2020-08-29] MEDS: MORPHINE SULFATE INJ 4 MG/ML INJ 1ML IV PRN ×5 (00:23→15:33)
[2020-08-29] MEDS: SODIUM CHLORIDE 0.9% 250ML IRRIG IR SCH ×6 (01:21→20:07)
--- NOTE | 2020-08-29 02:12 | NUR ---
Spoke to GRIS Schuler for Dr. Armando regarding HR dropping into the 30's; I was told thank you.
[2020-08-29] MEDS: SODIUM CHLORIDE 0.9% 1000ML 1,000 ML IV SCH ×3 (05:11→22:50)
[2020-08-29 05:40] LABS: BASOPHILS % 0.3 % (0.0-1.0); EOSINOPHILS # (AUTO) 0.1 (0.0-0.4); EOSINOPHILS % 0.8 % (0.0-6.0); HEMATOCRIT 35.8 % (38.2-49.6); HEMOGLOBIN 11.7 g/dL (14.0-18.0); LYMPHOCYTES % 31.3 % (18.0-39.1); MEAN CORPUSCULAR HEMOGLOBIN 32.1 pg (28-32); MEAN CORPUSCULAR HGB CONC 32.7 g/dL (31-35); MEAN CORPUSCULAR VOLUME 98.4 fL (81-99); MONOCYTES # (AUTO) 0.6 (0.2-0.8); MONOCYTES % 8.9 % (4.4-11.3); NEUTROPHILS # (AUTO) 3.8 (2.1-6.9); NEUTROPHILS % 58.5 % (38.7-80.0); PLATELET COUNT 170 x10e3/uL (140-360); RED BLOOD COUNT 3.64 x10e6/uL (4.3-5.7); RED CELL DISTRIBUTION WIDTH 14.9 % (11.7-14.4)
[2020-08-29 06:05] LABS: ALANINE AMINOTRANSFERASE 21 IU/L (0-55); ALBUMIN 3.5 g/dL (3.5-5.0); ALBUMIN/GLOBULIN RATIO 1.2 (0.8-2.0); ALKALINE PHOSPHATASE 52 IU/L (40-150); ANION GAP 10.9 mmol/L (8-16); BLOOD UREA NITROGEN 9 mg/dL (7-26); BUN/CREATININE RATIO 10 (6-25); CALCIUM 8.8 mg/dL (8.4-10.2); CARBON DIOXIDE 22 mmol/L (22-29); CHLORIDE 114 mmol/L (98-107); CHOL/HDL RATIO 2.1 (3.9-4.7); CHOLESTEROL 193 MD/DL (0-199); CREATININE, SERUM 0.89 mg/dL (0.72-1.25); EST GLOMERULAR FILTRATION RATE > 60 ML/MIN (60-); GLUCOSE 98 mg/dL (74-118); HDL CHOLESTEROL 90 MG/DL (40-60); LDL CHOLESTEROL 94 MG/DL (60-130); MAGNESIUM 2.1 MG/DL (1.3-2.1); PHOSPHORUS 3.2 MG/DL (2.3-4.7); POTASSIUM 3.9 mmol/L (3.5-5.1); SODIUM 143 mmol/L (136-145); TRIGLYCERIDES 47 MG/DL (0-149)
[2020-08-29 06:27] LABS: THYROID STIMULATING HORMONE 1.126 uIU/mL (0.350-4.940)
[2020-08-29] MEDS: FAMOTIDINE 20 MG/2 ML VIAL IV SCH ×2 (08:33→16:28)
--- NOTE | 2020-08-29 09:13 | Diagnostic Imaging Report ---
EXAM: ABDOMEN 2 VIEW DATE: 08/29/2020 8:40 AM INDICATION: Small bowel obstruction COMPARISON: 08/28/2016 FINDINGS/IMPRESSION: Enteric tube identified with distal tip terminating within the left upper quadrant in the expected region of the gastric body/fundus. Distended air-filled loops of small bowel are identified measuring up to 4.4 cm, similar to the prior CT examination. Air is noted within the colon. Findings are suggestive of ongoing, at least partial, small bowel obstruction. No intraperitoneal free air is appreciated. No abnormal intraabdominal calcification is identified. Contrast material noted within the urinary bladder. No acute osseous abnormality is identified. Signed by: Dr. Edward Nolan MD on 08/29/2020 9:10 AM
[2020-08-29] MEDS: ONDANSETRON HCL INJ 2MG/ML 2ML 2 MG/ML VIAL IV PRN ×2 (09:25→15:33)
[2020-08-29] MEDS ORDERED: HYDRALAZINE HCL 20 MG/ML VIAL IV PRN (19:00)
--- NOTE | 2020-08-29 23:52 | NUR ---
SPOKE TO DR. Debora ARAUZ AT THIS TIME. NEW ORDERS RECEIVED FOR 2 VIEW ABDOMEN IN THE MORNING, PROTONIX 40MG IV BID AND TO [place]AM PEPCID.
[2020-08-30] VITALS (8 sets, daily range): BP systolic 144–155; BP diastolic 78–92
[2020-08-30] MEDS: SODIUM CHLORIDE 0.9% 250ML IRRIG IR SCH ×6 (00:15→20:22)
[2020-08-30] MEDS: MORPHINE SULFATE INJ 4 MG/ML INJ 1ML IV PRN ×4 (01:52→23:32)
[2020-08-30 04:49] LABS: BASOPHILS % 0.4 % (0.0-1.0); EOSINOPHILS # (AUTO) 0.1 (0.0-0.4); EOSINOPHILS % 1.3 % (0.0-6.0); HEMATOCRIT 36.9 % (38.2-49.6); HEMOGLOBIN 11.7 g/dL (14.0-18.0); LYMPHOCYTES # (AUTO) 2.1 (1.0-3.2); LYMPHOCYTES % 29.3 % (18.0-39.1); MEAN CORPUSCULAR HEMOGLOBIN 31.2 pg (28-32); MEAN CORPUSCULAR HGB CONC 31.7 g/dL (31-35); MEAN CORPUSCULAR VOLUME 98.4 fL (81-99); MONOCYTES # (AUTO) 0.6 (0.2-0.8); MONOCYTES % 8.2 % (4.4-11.3); NEUTROPHILS # (AUTO) 4.3 (2.1-6.9); NEUTROPHILS % 60.5 % (38.7-80.0); PLATELET COUNT 172 x10e3/uL (140-360); RED BLOOD COUNT 3.75 x10e6/uL (4.3-5.7); RED CELL DISTRIBUTION WIDTH 14.7 % (11.7-14.4)
[2020-08-30 05:05] LABS: ANION GAP 13.9 mmol/L (8-16); BLOOD UREA NITROGEN 8 mg/dL (7-26); BUN/CREATININE RATIO 10 (6-25); CALCIUM 8.8 mg/dL (8.4-10.2); CARBON DIOXIDE 22 mmol/L (22-29); CHLORIDE 110 mmol/L (98-107); CREATININE, SERUM 0.84 mg/dL (0.72-1.25); EST GLOMERULAR FILTRATION RATE > 60 ML/MIN (60-); GLUCOSE 78 mg/dL (74-118); POTASSIUM 3.9 mmol/L (3.5-5.1); SODIUM 142 mmol/L (136-145)
[2020-08-30 05:26] LABS: FERRITIN 37.42 ng/mL (21.81-274.66)
--- NOTE | 2020-08-30 06:16 | Diagnostic Imaging Report ---
EXAM: Abdomen 2 radiographs INDICATION: ^SMALL BOWEL OBSTRUCTION ^20200830 ^0555 COMPARISON: 08/29/2020 FINDINGS: Enteric tube is visualized with tip projecting over gastric fundus. The side-port is at GE junction. Nonobstructive bowel gas pattern. No signs of pneumoperitoneum. Moderate colonic stool burden. Clear lung bases. No acute osseous abnormality. IMPRESSION: 1. Recommend advancement of enteric tube. 2. Nonobstructive bowel gas pattern. Signed by: Dr. Estevan Askew MD on 08/30/2020 6:12 AM
[2020-08-30] MEDS: SODIUM CHLORIDE 0.9% 1000ML 1,000 ML IV SCH ×2 (06:20→11:22)
--- NOTE | 2020-08-30 06:37 | NUR ---
SPOKE TO ANGELITA DUMAS REGARDING CONSULT. NO NEW ORDER.
[2020-08-30] MEDS: PANTOPRAZOLE 40 MG 10ML VIAL IV SCH ×2 (08:56→17:10)
[2020-08-30] MEDS: ONDANSETRON HCL INJ 2MG/ML 2ML 2 MG/ML VIAL IV PRN (11:22)
[2020-08-30] MEDS: IRON SUCROSE 100 MG in SODIUM CHLORIDE 0.9% 100 ML 100 ML IV SCH (11:22)
--- NOTE | 2020-08-30 12:18 | Consultation ---
DATE OF CONSULTATION: 08/30/2020 REASON FOR CONSULTATION: Small-bowel obstruction. HISTORY OF PRESENT ILLNESS: The patient is a pleasant 50-year-old male, who was admitted to the hospital on 08/28/2020 from the emergency room complaining of abdominal pain and epigastric pain the day prior to admission. Workup revealed by CT, partial small-bowel obstruction. The patient had an ultrasound of the gallbladder that revealed no stones. His past history is significant for the fact that 22 years ago he had partial gastrectomy for bleeding ulcer. He had an admission with similar symptoms in 2019. The patient states that four months ago he lost his , and he has one young child at home that he needs to take care of . His past medical history is unremarkable. Since admission, he has been treated with a nasogastric tube.Several fu abdominal x rays have confirmed the presence of a partial small bowel obstruction. Today, the patient is passing some gas and the x-rays revealed resolution of obstruction. PHYSICAL EXAMINATION: GENERAL: Reveals a pleasant 50-year-old male in no acute distress. He has had an NG tube in place that is draining a perez bile. ABDOMEN: Examination of the abdomen reveals a midline healed scar andno abdominal distention. No peritoneal signs present. ASSESSMENT: Partial small-bowel, resolving. Hx of partial gastrectomy for blorrding ulcer. PLAN: To continue the same treatment. We will intermittently clamp the NG tube and see if he tolerates that well, possibly remove it tomorrow. Thank you for the courtesy of this consultation. MD JEREMIAH St/MONALISA /[id number] ROSA
[2020-08-30] MEDS: AMLODIPINE BESYLATE 10 MG TAB PO SCH (21:30)
--- NOTE | 2020-08-30 21:58 | NUR ---
SPOKE TO ANGELITA DUMAS AT THIS TIME REGARDING ORDER FROM DR. YI TO REMOVE NGT. MD GOLDSTEIN SAID DO NOT REMOVE NGT, JUST CLAMP IT. HE WILL SEE THE PATIENT TOMORROW. CANCEL REMOVE NGT ORDER FROM DR. YI.
--- NOTE | 2020-08-30 22:14 | NUR ---
SPOKE TO ANGELITA DUMAS AGAIN AT THIS TIME. SAID CHANGE ABDOMEN 1VIEW TO 2 VIEWS. NO ICE CHIPS, KEEP NPO UNTIL HE SEES THE PATIENT IN THE MORNING.
[2020-08-31] VITALS: BP 147/88
[2020-08-31] MEDS: SODIUM CHLORIDE 0.9% 250ML IRRIG IR SCH ×3 (00:30→08:45)
[2020-08-31] MEDS: SODIUM CHLORIDE 0.9% 1000ML 1,000 ML IV SCH ×3 (00:30→11:30)
[2020-08-31 04:00] VITALS: BP 152/80
[2020-08-31] MEDS: MORPHINE SULFATE INJ 4 MG/ML INJ 1ML IV PRN ×2 (04:50→09:00)
[2020-08-31 06:18] LABS: BASOPHILS % 0.3 % (0.0-1.0); EOSINOPHILS # (AUTO) 0.1 (0.0-0.4); EOSINOPHILS % 1.6 % (0.0-6.0); HEMATOCRIT 36.9 % (38.2-49.6); HEMOGLOBIN 11.7 g/dL (14.0-18.0); LYMPHOCYTES # (AUTO) 1.6 (1.0-3.2); MEAN CORPUSCULAR HEMOGLOBIN 30.9 pg (28-32); MEAN CORPUSCULAR HGB CONC 31.7 g/dL (31-35); MEAN CORPUSCULAR VOLUME 97.4 fL (81-99); MONOCYTES # (AUTO) 0.7 (0.2-0.8); MONOCYTES % 9.6 % (4.4-11.3); NEUTROPHILS # (AUTO) 4.6 (2.1-6.9); NEUTROPHILS % 65.4 % (38.7-80.0); PLATELET COUNT 168 x10e3/uL (140-360); RED BLOOD COUNT 3.79 x10e6/uL (4.3-5.7); RED CELL DISTRIBUTION WIDTH 14.5 % (11.7-14.4)
[2020-08-31 06:31] LABS: ANION GAP 14.5 mmol/L (8-16); BLOOD UREA NITROGEN 8 mg/dL (7-26); BUN/CREATININE RATIO 11 (6-25); CALCIUM 8.8 mg/dL (8.4-10.2); CARBON DIOXIDE 21 mmol/L (22-29); CHLORIDE 105 mmol/L (98-107); CREATININE, SERUM 0.74 mg/dL (0.72-1.25); EST GLOMERULAR FILTRATION RATE > 60 ML/MIN (60-); GLUCOSE 67 mg/dL (74-118); POTASSIUM 3.5 mmol/L (3.5-5.1); SODIUM 137 mmol/L (136-145)
--- NOTE | 2020-08-31 07:00 | NUR ---
RECEIVED PATIENT RESTING IN BED NO S/S OF DISTRESS. BED LOW, WHEELS LOCKED, SIDE RAILS X2. CALL LIGHT IN REACH WILL CONTINUE TO MONITOR PATIENT.
[2020-08-31] MEDS: AMLODIPINE BESYLATE 10 MG TAB PO SCH (08:11)
[2020-08-31 08:17] VITALS: BP 159/85
[2020-08-31] MEDS: PANTOPRAZOLE 40 MG 10ML VIAL IV SCH ×2 (08:45→16:34)
[2020-08-31 08:46] VITALS: BP 159/85
--- NOTE | 2020-08-31 09:36 | Diagnostic Imaging Report ---
EXAM: Abdomen 2 radiographs INDICATION: SBO COMPARISON: KUB 08-29-2020. FINDINGS: Interval advancement of enteric tube, which terminates in the distal stomach, the side-port is below the GE junction. No evidence of high-grade bowel obstruction. Air and stool seen throughout the colon. No signs of pneumoperitoneum. Moderate colonic stool burden. Clear lung bases. No acute osseous abnormality. IMPRESSION: Interval advancement of enteric tube in appropriate position. No evidence of bowel obstruction. Signed by: Dr. Isamar Medina MD on 08/31/2020 9:32 AM
[2020-08-31] MEDS: IRON SUCROSE 100 MG in SODIUM CHLORIDE 0.9% 100 ML 100 ML IV SCH (09:47)
--- NOTE | 2020-08-31 11:15 | NUR ---
Removed patients NG tube. Tube intact on removal. Patient tolerated well.
[2020-08-31 12:30] VITALS: BP 148/86
[2020-08-31 16:00] VITALS: BP 147/88
--- NOTE | 2020-08-31 17:12 | Discharge Summary ---
PRIMARY CARE PROVIDER: None. ADMITTING DIAGNOSIS: Partial small bowel obstruction. DISCHARGE DIAGNOSIS: Partial small bowel obstruction. BRIEF HISTORY: Mr. Solis is a 50-year-old gentleman presenting with two days of periumbilical abdominal pain and fullness. KUB showed a partial small bowel obstruction. HOSPITAL COURSE: The patient was admitted to the floor. An NG tube was placed 24 hours later, KUB showed normal bowel gas pattern. NG tube was removed on the second day and the patient was started on clear liquids and advance to regular diet, which he tolerated well. Follow up KUB after the NG tube was out and his diet was started and showed normal bowel gas pattern and the patient was discharged home to resume regular diet and activity. He has no medications and he will follow up with me or any other primary care provider within the next two weeks. MD BRIANA Davies/MONALISA /[id number]
--- NOTE | 2020-08-31 17:55 | NUR ---
Removed patients IV. Catheter tip intact on removal. Pressure dressing applied.
--- NOTE | 2020-08-31 18:31 | NUR ---
Patient discharged from facility in stable condition. Patient gathered all personal belongings and discharge instructions. No s/s of distress when leaving facility.
== END 2020-08-31 18:36 | disposition home or self-care (01) ==
LOC: ER 16:31 → ERHOLD 20:29 → MED/SURG 21:07 → INTOOBSV 08-29 11:27 → OBSVTOIN 08-29 11:27
PROVIDERS: ADMIT Internal Medicine; ATTEND Internal Medicine
DX: K56.600 Partial intestinal obstruction, unspecified as to cause (principal); Z90.3 Acquired absence of stomach [part of]; Z87.11 Personal history of peptic ulcer disease; D50.9 Iron deficiency anemia, unspecified; Z11.59 Encounter for screening for other viral diseases
CPT/HCPCS: 36415 ×4; 71045; 74018; 74019 ×3; 74177; 76705; 80048 ×2; 80053 ×2; 80061; 80307; 81001; 82607; 82728; 82746; 83036; 83540; 83690; 83735; 84100; 84443; 84466; 85025 ×4; 85045; 93005; 99284; C9113 ×3; G0378 ×4; J1756; J2270 ×4; J2405 ×3; J3010; J7030 ×4; Q9967; U0002